=== PATIENT | male | born 1970 | race Caucasian/White ===

== ENCOUNTER 2019-11-24 08:57 | Inpatient (IN) | payer MEDICAID ==
[~2019-11-24] VITALS: Ht 177.8 cm; Wt 124.6 kg
--- NOTE | 2019-11-24 09:40 | NUR ---
pt presents to ED with c/o abcess to back, present x 10 days. pt was seen at urgent care 5 days ago and given two antibiotics; bactrim and clindamycin, pt has been compliant with meds but has not noted any improvement in abcess size. pt states he has been febrile at home, last temp recorded was 99 at home yesterday pm. tmax at home 100.7 3 days ago. pt took motrin this am, denies pain at this time. pt seen and examined by DOUG Craig aware pt is hypertensive at 218/133 in triage. pt states he has never been diagnosed with htn, but hasn't seen a doctor in years. pt denies CP/SOB/visual changes/headaches. pt a&o, resps even and unlabored. all monitors in place, pt is sinus tach rate 100-110 with no ectopy. call light in reach. awaitng orders.
[2019-11-24] MEDS ORDERED: SODIUM CHLORIDE FLUSH 10ML SYR IVF ONE (10:00)
[2019-11-24] MEDS ORDERED: IBUP-1223 PO (10:12)
[2019-11-24 10:40] LABS: MEAN CORPUSCULAR HEMOGLOBIN 32.2 pg (27.5-34.5); MEAN CORPUSCULAR HGB CONC 33.5 g/dL (33.2-36.2); MEAN CORPUSCULAR VOLUME 96.2 fL (81-97); MEAN PLATELET VOLUME 7.3 fL (7.4-10.4); PLATELET COUNT 383 x10^3/uL (130-400); RED BLOOD COUNT 4.85 x10^6/uL (4.38-5.82); RED CELL DISTRIBUTION WIDTH 12.2 % (9.4-14.8)
[2019-11-24 10:43] LABS: ALBUMIN 2.5 g/dL (3.4-5.0); ANION GAP 11 mmol/L (5-15); CHLORIDE 98 mmol/L (98-107); CREATININE 0.85 mg/dL (0.7-1.3)
[2019-11-24] MEDS ORDERED: SODIUM CHLORIDE 0.9% 1,000ML IVBOLUS ONE (11:00)
--- NOTE | 2019-11-24 11:04 | NUR ---
PIV to left chest does not have blood return but flushes, second PIV placed to left AC with US guidance, this PIV flushes with blood return. 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 Labs reviewed by TALITA Yancey, pt meeting criteria for sepsis, order for abx requested. MD aware of BP and trend.
[2019-11-24 11:08] LABS: BASOPHILS # (AUTO) 0.03 x10^3/uL (0-0.1); BASOPHILS % (AUTO) 0 % (0-1); EOSINOPHILS # (AUTO) 0.06 x10^3/uL (0-0.4); EOSINOPHILS % (AUTO) 0 % (1-7); LYMPHOCYTES # (AUTO) 1.36 x10^3/uL (1-3.4); LYMPHOCYTES % (AUTO) 8 % (22-44); MD SCAN; MONOCYTES # (AUTO) 1.44 x10^3/uL (0.2-0.8); MONOCYTES % (AUTO) 9 % (2-9); NEUTROPHILS # (AUTO) 14.05 x10^3/uL (1.8-6.8); NEUTROPHILS % (AUTO) 83 % (42-75)
[2019-11-24] MEDS ORDERED: OMNIPAQUE 350 MG/ML, 100ML BOTTLE ONE (11:15)
[2019-11-24] MEDS ORDERED: CEFTRIAXONE PMX 1GM/50ML 50 ML ONE (11:17)
[2019-11-24] MEDS ORDERED: VANCOMYCIN PER PHARMACY MC PRN ×2 (11:30→12:30)
[2019-11-24] MEDS ORDERED: CEFTRIAXONE PMX 1GM/50ML 50 ML IV ONE (11:30)
[2019-11-24] MEDS ORDERED: VANCOMYCIN 2,000 MG in SODIUM CHLORIDE 0.9% 500 ML IV ONE (12:00)
--- NOTE | 2019-11-24 12:00 | NUR ---
late entry d/t patient care: pt resting on gurney, pt a&o, resps even and unlabored. sinus tach rate 90s on monitor with no ectopy. pt reports minimal pain to abcess. IV abx infusing, IVF infusing. pt denies any needs at this time.
[2019-11-24] MEDS ORDERED: POTASSIUM CHLORIDE 20 MEQ TAB.ER.PRT PO ONE (12:30)
[2019-11-24] MEDS ORDERED: TRAZODONE 50MG TABLET PO PRN (12:30)
[2019-11-24] MEDS: INSULIN LISPRO 100 UNITS/ML, PEN SQ-INSULIN SCH ×3 (12:30→20:47)
[2019-11-24] MEDS ORDERED: ACETAMINOPHEN 325 MG TABLET PO PRN (12:30)
[2019-11-24] MEDS: CEFTRIAXONE PMX 1GM/50ML 50 ML IV SCH (12:30)
[2019-11-24] MEDS ORDERED: ONDANSETRON ODT 4 MG PO PRN (12:30)
[2019-11-24] MEDS ORDERED: METOCLOPRAMIDE 5 MG/ML, 2ML IVPush PRN (12:30)
[2019-11-24 12:43] LABS: FREE T4 (FREE THYROXINE) 1.47 ng/dL (0.76-1.46)
--- NOTE | 2019-11-24 13:07 | NUR ---
This RN spoke with MD Benjamin MD instructed RN to hold oral potassium until after pt has had surgery. RN to keep pt NPO at this time for possible surgery today.
--- NOTE | 2019-11-24 13:53 | NUR ---
fingerstick glucose 260, RN to hold insulin prior to surgery per MD Alexander as pt is NPO.
--- NOTE | 2019-11-24 13:57 | NUR ---
MD Alexander notified pt has not had an EKG, and has been hypertensive since arrival to ED. Pt denies cardiac symptoms, however will likely go to OR today per MD Yancey. MD Alexander ordered a preprocedure EKG. EKG completed by EDT and reviewed by MD Yancey.
[2019-11-24] MEDS ORDERED: MORPHINE SULFATE 4 MG/ML, 1ML ONE (14:04)
[2019-11-24] MEDS: morphine SULFATE 10 MG/ML, 1ML IVPush PRN (14:10)
--- NOTE | 2019-11-24 14:16 | NUR ---
Task rn: Medicated per Emar for upper back pain at 02/24 Updated on estimated poc
--- NOTE | 2019-11-24 14:29 | NUR ---
report called to RN Kathy, pt medicated by task RN for pain to [facility] site, pt tolerating well. all monitors in place, pt a&o, resps even and unlabored, satting >90% room air. pt voided in ED without collecting sample, receiving RN aware of need to collect UA. pt awaiting transport to medical floor at this time.
--- NOTE | 2019-11-24 15:19 | NUR ---
preop IRVING Rodrigues called for report, sbar report given over phone.
[2019-11-24] MEDS: SODIUM CHLORIDE 0.9% 1,000 ML IV SCH (15:25)
[2019-11-24] MEDS ORDERED: PHARMACOKINETIC MONITORING MC PRN (15:30)
[2019-11-24] MEDS ORDERED: CHLORHEXIDINE 15 ML UDC MM ONE (15:52)
[2019-11-24] MEDS ORDERED: CHLORHEXIDINE 15 ML UDC ONE (15:54)
[2019-11-24] MEDS ORDERED: HALOPERIDOL 5 MG/ML IV PRN (16:00)
[2019-11-24] MEDS ORDERED: MEPERIDINE/PF 25MG/ML,1ML IVPush PRN (16:00)
[2019-11-24] MEDS ORDERED: OXYcodone 5 MG/5 ML ORAL.SOL UDC PO PRN (16:00)
[2019-11-24] MEDS ORDERED: HYDROmorphone 2 MG/ML, 1ML IVPush PRN (16:00)
[2019-11-24] MEDS ORDERED: PROMETHAZINE 25 MG/ML, 1ML IV PRN (16:00)
[2019-11-24] MEDS ORDERED: MIDAZOLAM 1 MG/ML, 2ML ONE (16:09)
[2019-11-24] MEDS ORDERED: FENTANYL PF 250 MCG/5ML ONE (16:10)
[2019-11-24] MEDS ORDERED: NEOSTIGMINE 1 MG/ML, 10ML ONE (16:52)
[2019-11-24] MEDS ORDERED: PROPOFOL 10 MG/ML, 20ML ONE (16:52)
[2019-11-24] MEDS ORDERED: ONDANSETRON 2MG/ML, 2ML ONE (16:52)
[2019-11-24] MEDS ORDERED: GLYCOPYRROLATE 0.2MG/1ML, 5ML ONE (16:52)
[2019-11-24] MEDS ORDERED: ROCURONIUM 10MG/ML,5ML ONE (16:52)
[2019-11-24] MEDS ORDERED: CEFAZOLIN 1,000 MG ONE (16:52)
[2019-11-24] MEDS ORDERED: DEXAMETHASONE 4 MG/ML, 1ML ONE (16:52)
[2019-11-24] MEDS ORDERED: SUCCINYLCHOLINE 20 MG/ML, 10ML ONE (16:52)
[2019-11-24] MEDS: LABETALOL 5MG/ML, 20ML IV PRN ×3 (17:26→17:54)
[2019-11-24] MEDS ORDERED: FENTANYL PF 100 MCG/2ML ONE (17:31)
[2019-11-24] MEDS ORDERED: OXYcodone 5 MG/5 ML ORAL.SOL UDC ONE (17:31)
[2019-11-24] MEDS ORDERED: hydrALAzine 20 MG/ML, 1ML ONE (17:44)
[2019-11-24] MEDS: hydrALAzine 20 MG/ML, 1ML IV PRN ×2 (17:45→18:05)
[2019-11-24] MEDS: FENTANYL PF 100 MCG/2ML IV PRN ×2 (17:54→17:59)
[2019-11-24 18:41] VITALS: BP 179/94
[2019-11-24 19:38] LABS: MICROSCOPIC AUTO
[2019-11-24 19:46] LABS: CULTURE INDICATED? NO
[2019-11-24] MEDS: HYDROcodone/APAP 5/325 TABLET PO PRN (23:05)
[2019-11-25] MEDS: VANCOMYCIN 2,000 MG in SODIUM CHLORIDE 0.9% 500 ML IV SCH ×3 (00:04→23:49)
[2019-11-25 01:17] VITALS: BP 136/86
[2019-11-25] MEDS: SODIUM CHLORIDE 0.9% 1,000 ML IV SCH ×3 (04:29→18:04)
[2019-11-25 05:52] LABS: MEAN CORPUSCULAR HEMOGLOBIN 32.6 pg (27.5-34.5); MEAN CORPUSCULAR HGB CONC 33.8 g/dL (33.2-36.2); MEAN CORPUSCULAR VOLUME 96.4 fL (81-97); MEAN PLATELET VOLUME 7.2 fL (7.4-10.4); PLATELET COUNT 385 x10^3/uL (130-400); RED BLOOD COUNT 3.97 x10^6/uL (4.38-5.82); RED CELL DISTRIBUTION WIDTH 12.4 % (9.4-14.8)
[2019-11-25 05:55] LABS: ANION GAP 10 mmol/L (5-15); CALCIUM 8.4 mg/dL (8.5-10.1); CHLORIDE 101 mmol/L (98-107)
[2019-11-25 05:59] LABS: CHOL/HDL RATIO 3.8; CHOLESTEROL, TOTAL 111 mg/dL (140-239); CREATININE 0.68 mg/dL (0.7-1.3); HDL CHOL % 26 % (26-37); HDL CHOLESTEROL (DIRECT) 29 mg/dL (40-60); LDL CHOLESTEROL,CALCULATED 61 mg/dL (54-169); LDL/HDL RATIO 2.1 (0.5-3.0); TRIGLYCERIDES 105 mg/dL (50-200); VLDL CHOLESTEROL 21 mg/dL (0-25)
[2019-11-25 06:16] LABS: MD YES
[2019-11-25 06:25] LABS: BAND#(MANUAL) 1.28 x10^3/uL; BANDS%(MANUAL) 8 % (0-7); LYMPHS% (MANUAL) 25 % (22-44); METAMYELOCYTES# (MANUAL) 0.16 x10^3/uL (0-0); METAMYELOCYTES% (MANUAL) 1 % (0-1); MONOS% (MANUAL) 5 % (2-9); SEG#(MANUAL) 9.76 x10^3/uL (1.8-6.8); SEGS% (MANUAL) 61 % (42-75)
[2019-11-25 06:27] LABS: <RBC MORPHOLOGY> NORMAL; TOXIC GRAN 1+
[2019-11-25 06:42] LABS: <PLATELET ESTIMATE> ADEQUATE; <PLT MORPHOLOGY> NORMAL PLT MORPH
[2019-11-25 07:43] VITALS: BP 181/102
[2019-11-25] MEDS: hydrALAzine 20 MG/ML, 1ML IVPush PRN (07:55)
[2019-11-25] MEDS: INSULIN LISPRO 100 UNITS/ML, PEN SQ-INSULIN SCH ×4 (08:07→22:03)
[2019-11-25 08:09] VITALS: BP 166/94
[2019-11-25] MEDS: HYDROcodone/APAP 5/325 TABLET PO PRN ×2 (09:11→16:45)
[2019-11-25] MEDS: morphine SULFATE 10 MG/ML, 1ML IVPush PRN (12:57)
[2019-11-25 14:17] VITALS: BP 157/97
[2019-11-25] MEDS: CEFTRIAXONE PMX 1GM/50ML 50 ML IV SCH (14:22)
[2019-11-25] MEDS: LISINOPRIL 10 MG TABLET PO SCH (16:40)
[2019-11-25 18:39] VITALS: BP 127/79
[2019-11-25] MEDS ORDERED: INSULIN GLARGINE 100 UNITS/ML, PEN SQ-INSULIN SCH (21:00)
[2019-11-26] VITALS (7 sets, daily range): BP systolic 124–184; BP diastolic 84–128
[2019-11-26] MEDS: HYDROcodone/APAP 5/325 TABLET PO PRN ×4 (00:41→19:32)
[2019-11-26] MEDS: SODIUM CHLORIDE 0.9% 1,000 ML IV SCH (05:07)
[2019-11-26 05:22] LABS: MEAN CORPUSCULAR HEMOGLOBIN 32.8 pg (27.5-34.5); MEAN CORPUSCULAR HGB CONC 34.1 g/dL (33.2-36.2); MEAN PLATELET VOLUME 7.2 fL (7.4-10.4); PLATELET COUNT 392 x10^3/uL (130-400); RED BLOOD COUNT 3.71 x10^6/uL (4.38-5.82); RED CELL DISTRIBUTION WIDTH 12.2 % (9.4-14.8)
[2019-11-26 05:29] LABS: ANION GAP 9 mmol/L (5-15); CALCIUM 8.2 mg/dL (8.5-10.1); CHLORIDE 102 mmol/L (98-107); CREATININE 0.52 mg/dL (0.7-1.3)
[2019-11-26 06:06] LABS: MD YES
[2019-11-26 06:08] LABS: BAND#(MANUAL) 0.11 x10^3/uL; BANDS%(MANUAL) 1 % (0-7); EOS#(MANUAL) 0.22 x10^3/uL (0.0-0.4); EOS% (MANUAL) 2 % (1-7); LYMPH#(MANUAL) 2.05 x10^3/uL (1-3.4); LYMPHS% (MANUAL) 19 % (22-44); METAMYELOCYTES# (MANUAL) 0.11 x10^3/uL (0-0); METAMYELOCYTES% (MANUAL) 1 % (0-1); MONOS#(MANUAL) 0.97 x10^3/uL (0.3-2.7); MONOS% (MANUAL) 9 % (2-9); MYELOCYTES# (MANUAL) 0.22 x10^3/uL (0-0); MYELOCYTES% (MANUAL) 2 % (0-0); SEG#(MANUAL) 7.13 x10^3/uL (1.8-6.8); SEGS% (MANUAL) 66 % (42-75)
[2019-11-26 06:09] LABS: <PLATELET ESTIMATE> ADEQUATE; <PLT MORPHOLOGY> NORMAL PLT MORPH; <RBC MORPHOLOGY> NORMAL; TOXIC GRAN 1+
[2019-11-26] MEDS: INSULIN LISPRO 100 UNITS/ML, PEN SQ-INSULIN SCH ×4 (08:00→20:55)
[2019-11-26] MEDS: LISINOPRIL 10 MG TABLET PO SCH (08:00)
[2019-11-26] MEDS: DOCUSATE 100 MG CAPSULE PO PRN (09:15)
[2019-11-26] MEDS: POLYETHYLENE GLYCOL 17 GM PACKET PO PRN (09:16)
[2019-11-26] MEDS: hydrALAzine 20 MG/ML, 1ML IVPush PRN (09:16)
[2019-11-26] MEDS: morphine SULFATE 10 MG/ML, 1ML IVPush PRN (12:32)
[2019-11-26] MEDS: CEFTRIAXONE PMX 1GM/50ML 50 ML IV SCH (14:08)
[2019-11-26] MEDS: VANCOMYCIN 2,000 MG in SODIUM CHLORIDE 0.9% 500 ML IV SCH (15:19)
[2019-11-26] MEDS: CARVEDILOL 6.25 MG TABLET PO SCH (16:49)
[2019-11-26] MEDS ORDERED: INSULIN GLARGINE 100 UNITS/ML, PEN SQ-INSULIN SCH ×2 (21:00)
[2019-11-27 00:24] VITALS: BP 134/88
[2019-11-27] MEDS: VANCOMYCIN 2,000 MG in SODIUM CHLORIDE 0.9% 500 ML IV SCH ×2 (03:04→16:33)
[2019-11-27] MEDS: HYDROcodone/APAP 5/325 TABLET PO PRN ×4 (04:09→22:50)
[2019-11-27 04:26] LABS: BASOPHILS # (AUTO) 0.06 x10^3/uL (0-0.1); BASOPHILS % (AUTO) 1 % (0-1); EOSINOPHILS # (AUTO) 0.17 x10^3/uL (0-0.4); EOSINOPHILS % (AUTO) 2 % (1-7); LYMPHOCYTES % (AUTO) 18 % (22-44); MD NO; MEAN CORPUSCULAR HEMOGLOBIN 32.6 pg (27.5-34.5); MEAN CORPUSCULAR HGB CONC 34.2 g/dL (33.2-36.2); MEAN CORPUSCULAR VOLUME 95.1 fL (81-97); MEAN PLATELET VOLUME 7.2 fL (7.4-10.4); MONOCYTES # (AUTO) 0.64 x10^3/uL (0.2-0.8); MONOCYTES % (AUTO) 7 % (2-9); NEUTROPHILS # (AUTO) 6.21 x10^3/uL (1.8-6.8); NEUTROPHILS % (AUTO) 72 % (42-75); PLATELET COUNT 485 x10^3/uL (130-400); RED BLOOD COUNT 3.84 x10^6/uL (4.38-5.82); RED CELL DISTRIBUTION WIDTH 12.4 % (9.4-14.8)
[2019-11-27 04:32] LABS: ANION GAP 7 mmol/L (5-15); CALCIUM 8.3 mg/dL (8.5-10.1); CHLORIDE 107 mmol/L (98-107); CREATININE 0.58 mg/dL (0.7-1.3)
[2019-11-27] MEDS: CARVEDILOL 6.25 MG TABLET PO SCH ×2 (05:29→16:34)
[2019-11-27 06:13] VITALS: BP 158/100
[2019-11-27] MEDS: INSULIN LISPRO 100 UNITS/ML, PEN SQ-INSULIN SCH ×4 (07:00→20:53)
[2019-11-27 07:24] VITALS: BP 148/95
[2019-11-27] MEDS ORDERED: POTASSIUM CHLORIDE 20 MEQ TAB.ER.PRT PO ONE (07:30)
[2019-11-27] MEDS: POLYETHYLENE GLYCOL 17 GM PACKET PO PRN (08:13)
[2019-11-27] MEDS: LISINOPRIL 10 MG TABLET PO SCH (08:14)
[2019-11-27] MEDS: DOCUSATE 100 MG CAPSULE PO PRN (08:14)
[2019-11-27] MEDS: ENOXAPARIN 40 MG/0.4 ML SQ SCH (09:00)
[2019-11-27] MEDS: LISINOPRIL 20 MG TABLET PO SCH (10:19)
[2019-11-27] MEDS: morphine SULFATE 10 MG/ML, 1ML IVPush PRN (12:14)
[2019-11-27 14:07] VITALS: BP 122/83
[2019-11-27] MEDS: CEFTRIAXONE PMX 1GM/50ML 50 ML IV SCH (15:34)
[2019-11-27 19:52] VITALS: BP 153/97
[2019-11-27] MEDS ORDERED: INSULIN GLARGINE 100 UNITS/ML, PEN SQ-INSULIN SCH (21:00)
[2019-11-28 01:38] VITALS: BP 136/84
[2019-11-28] MEDS: VANCOMYCIN 2,000 MG in SODIUM CHLORIDE 0.9% 500 ML IV SCH ×2 (04:34→16:41)
[2019-11-28] MEDS: HYDROcodone/APAP 5/325 TABLET PO PRN ×3 (04:43→15:54)
[2019-11-28 05:21] LABS: BASOPHILS # (AUTO) 0.04 x10^3/uL (0-0.1); BASOPHILS % (AUTO) 1 % (0-1); EOSINOPHILS # (AUTO) 0.13 x10^3/uL (0-0.4); EOSINOPHILS % (AUTO) 2 % (1-7); LYMPHOCYTES % (AUTO) 20 % (22-44); MD NO; MEAN CORPUSCULAR HEMOGLOBIN 32.5 pg (27.5-34.5); MEAN CORPUSCULAR HGB CONC 33.8 g/dL (33.2-36.2); MEAN CORPUSCULAR VOLUME 96.3 fL (81-97); MEAN PLATELET VOLUME 6.7 fL (7.4-10.4); MONOCYTES # (AUTO) 0.65 x10^3/uL (0.2-0.8); MONOCYTES % (AUTO) 8 % (2-9); NEUTROPHILS # (AUTO) 5.44 x10^3/uL (1.8-6.8); NEUTROPHILS % (AUTO) 69 % (42-75); PLATELET COUNT 477 x10^3/uL (130-400); RED CELL DISTRIBUTION WIDTH 12.4 % (9.4-14.8)
[2019-11-28 05:25] LABS: ANION GAP 6 mmol/L (5-15); CALCIUM 8.3 mg/dL (8.5-10.1); CHLORIDE 107 mmol/L (98-107); CREATININE 0.57 mg/dL (0.7-1.3)
[2019-11-28] MEDS: CARVEDILOL 6.25 MG TABLET PO SCH (05:46)
[2019-11-28 06:44] VITALS: BP 152/98
[2019-11-28] MEDS: LISINOPRIL 20 MG TABLET PO SCH (07:36)
[2019-11-28] MEDS: ENOXAPARIN 40 MG/0.4 ML SQ SCH (07:37)
[2019-11-28 07:38] VITALS: BP 159/97
[2019-11-28] MEDS: INSULIN LISPRO 100 UNITS/ML, PEN SQ-INSULIN SCH ×4 (08:14→21:16)
[2019-11-28] MEDS: morphine SULFATE 10 MG/ML, 1ML IVPush PRN (10:25)
[2019-11-28 13:33] VITALS: BP 134/88
[2019-11-28] MEDS: CEFTRIAXONE PMX 1GM/50ML 50 ML IV SCH (15:56)
[2019-11-28] MEDS: CARVEDILOL 12.5 MG TABLET PO SCH (17:25)
[2019-11-28 19:05] VITALS: BP 127/88
[2019-11-28] MEDS ORDERED: INSULIN GLARGINE 100 UNITS/ML, PEN SQ-INSULIN SCH (21:00)
[2019-11-29 00:57] VITALS: BP 167/122
[2019-11-29] MEDS: hydrALAzine 20 MG/ML, 1ML IVPush PRN (01:07)
[2019-11-29 01:50] VITALS: BP 149/100
[2019-11-29 03:09] VITALS: BP 159/93
[2019-11-29] MEDS: VANCOMYCIN 2,000 MG in SODIUM CHLORIDE 0.9% 500 ML IV SCH ×2 (04:42→19:57)
[2019-11-29] MEDS: CARVEDILOL 12.5 MG TABLET PO SCH ×2 (05:34→19:58)
[2019-11-29 07:06] VITALS: BP_SYST 157; BP_DIAS 101; BP_DIAS 103
[2019-11-29] MEDS: LISINOPRIL 20 MG TABLET PO SCH (08:35)
[2019-11-29] MEDS: ENOXAPARIN 40 MG/0.4 ML SQ SCH (08:37)
[2019-11-29] MEDS: INSULIN LISPRO 100 UNITS/ML, PEN SQ-INSULIN SCH ×4 (09:19→21:10)
[2019-11-29 12:59] VITALS: BP 161/100
[2019-11-29] MEDS: morphine SULFATE 10 MG/ML, 1ML IVPush PRN (14:03)
[2019-11-29] MEDS: CEFTRIAXONE PMX 1GM/50ML 50 ML IV SCH (15:24)
[2019-11-29] MEDS: METRONIDAZOLE PMX 500MG/100ML 100 ML IV SCH (17:10)
[2019-11-29 20:22] VITALS: BP 137/70
[2019-11-29] MEDS: HYDROcodone/APAP 5/325 TABLET PO PRN (21:09)
[2019-11-29] MEDS: INSULIN GLARGINE 100 UNITS/ML, PEN SQ-INSULIN SCH (21:10)
[2019-11-30] VITALS (7 sets, daily range): BP systolic 128–183; BP diastolic 83–119
[2019-11-30] MEDS: METRONIDAZOLE PMX 500MG/100ML 100 ML IV SCH ×3 (01:19→20:48)
[2019-11-30 05:49] LABS: BASOPHILS # (AUTO) 0.03 x10^3/uL (0-0.1); BASOPHILS % (AUTO) 0 % (0-1); EOSINOPHILS # (AUTO) 0.19 x10^3/uL (0-0.4); EOSINOPHILS % (AUTO) 3 % (1-7); LYMPHOCYTES # (AUTO) 1.31 x10^3/uL (1-3.4); LYMPHOCYTES % (AUTO) 21 % (22-44); MD NO; MEAN CORPUSCULAR HEMOGLOBIN 32.5 pg (27.5-34.5); MEAN CORPUSCULAR HGB CONC 33.8 g/dL (33.2-36.2); MEAN CORPUSCULAR VOLUME 96.2 fL (81-97); MEAN PLATELET VOLUME 7.1 fL (7.4-10.4); MONOCYTES # (AUTO) 0.66 x10^3/uL (0.2-0.8); MONOCYTES % (AUTO) 11 % (2-9); NEUTROPHILS % (AUTO) 65 % (42-75); PLATELET COUNT 426 x10^3/uL (130-400); RED BLOOD COUNT 3.52 x10^6/uL (4.38-5.82); RED CELL DISTRIBUTION WIDTH 12.3 % (9.4-14.8)
[2019-11-30 05:51] LABS: ANION GAP 6 mmol/L (5-15); CALCIUM 8.2 mg/dL (8.5-10.1); CHLORIDE 108 mmol/L (98-107); CREATININE 0.52 mg/dL (0.7-1.3)
[2019-11-30] MEDS: CARVEDILOL 12.5 MG TABLET PO SCH ×2 (06:08→17:59)
[2019-11-30] MEDS: INSULIN LISPRO 100 UNITS/ML, PEN SQ-INSULIN SCH ×4 (07:00→21:50)
[2019-11-30] MEDS: VANCOMYCIN 2,000 MG in SODIUM CHLORIDE 0.9% 500 ML IV SCH ×2 (08:10→10:21)
[2019-11-30] MEDS: LISINOPRIL 20 MG TABLET PO SCH (08:11)
[2019-11-30] MEDS: ENOXAPARIN 40 MG/0.4 ML SQ SCH (08:12)
[2019-11-30] MEDS: LABETALOL 5MG/ML, 20ML IVPush PRN ×2 (08:20→12:34)
[2019-11-30] MEDS: HYDROcodone/APAP 5/325 TABLET PO PRN (13:38)
[2019-11-30] MEDS: CEFTRIAXONE PMX 1GM/50ML 50 ML IV SCH (16:56)
[2019-11-30] MEDS: hydrALAzine 20 MG/ML, 1ML IVPush PRN (18:37)
[2019-11-30] MEDS: INSULIN GLARGINE 100 UNITS/ML, PEN SQ-INSULIN SCH (21:49)
[2019-12-01] MEDS: VANCOMYCIN 2,000 MG in SODIUM CHLORIDE 0.9% 500 ML IV SCH ×2 (00:01→00:28)
[2019-12-01] MEDS ORDERED: metroNIDAZOLE 500 MG TABLET PO ONE (00:30)
[2019-12-01 00:35] VITALS: BP 159/104
[2019-12-01] MEDS: METRONIDAZOLE PMX 500MG/100ML 100 ML IV SCH (04:06)
[2019-12-01] MEDS: CARVEDILOL 12.5 MG TABLET PO SCH ×2 (05:57→17:31)
[2019-12-01] MEDS: HYDROcodone/APAP 5/325 TABLET PO PRN (06:02)
[2019-12-01 06:35] VITALS: BP 176/120
[2019-12-01] MEDS ORDERED: LISINOPRIL 40 MG TABLET ONE (06:38)
[2019-12-01] MEDS: LISINOPRIL 40 MG TABLET PO SCH (06:39)
[2019-12-01] MEDS: INSULIN LISPRO 100 UNITS/ML, PEN SQ-INSULIN SCH ×4 (07:00→21:53)
[2019-12-01 07:19] VITALS: BP 152/100
[2019-12-01] MEDS: ENOXAPARIN 40 MG/0.4 ML SQ SCH (09:00)
[2019-12-01 10:21] LABS: HCT (SEDRATE) 36.4 % (39.2-51.8)
[2019-12-01 10:27] LABS: CREATININE 0.65 mg/dL (0.7-1.3)
[2019-12-01 10:35] LABS: C-REACTIVE PROTEIN, QUANT 0.99 mg/dL (0.02-0.49)
[2019-12-01] MEDS ORDERED: VISIPAQUE 270 MG/ML, 50ML BOTTLE ONE (11:10)
[2019-12-01] MEDS: ERTAPENEM 1 GM in SODIUM CHLORIDE 0.9% 50 ML IV SCH (12:29)
[2019-12-01 13:46] VITALS: BP 154/89
[2019-12-01 17:17] VITALS: BP 182/107
[2019-12-01] MEDS: hydrALAzine 20 MG/ML, 1ML IVPush PRN (17:37)
[2019-12-01 18:32] VITALS: BP 170/104
[2019-12-01] MEDS: INSULIN GLARGINE 100 UNITS/ML, PEN SQ-INSULIN SCH (21:53)
[2019-12-02 00:14] VITALS: BP 150/99
[2019-12-02] MEDS: CARVEDILOL 12.5 MG TABLET PO SCH (05:00)
[2019-12-02 05:36] LABS: CREATININE 0.69 mg/dL (0.7-1.3)
[2019-12-02] MEDS: INSULIN LISPRO 100 UNITS/ML, PEN SQ-INSULIN SCH ×3 (07:00→11:33)
[2019-12-02] MEDS: ENOXAPARIN 40 MG/0.4 ML SQ SCH (09:00)
[2019-12-02] MEDS: LISINOPRIL 40 MG TABLET PO SCH (09:08)
[2019-12-02 09:27] VITALS: BP 157/98
[2019-12-02] MEDS ORDERED: CARV12.52 PO (10:40)
[2019-12-02] MEDS ORDERED: INSU100I13 SQ-INSULIN (10:40)
[2019-12-02] MEDS ORDERED: LISI40TA PO (10:40)
[2019-12-02] MEDS: ERTAPENEM 1 GM in SODIUM CHLORIDE 0.9% 50 ML IV SCH (11:57)
== END 2019-12-02 14:21 | disposition home or self-care (01) | DRG 710 ==
LOC: ED 10:32 → EDIP 11:53 → 3N 15:10
PROVIDERS: ADMIT Internal Medicine; ATTEND Family Medicine
PROC: 0J970ZZ Drainage of Back Subcutaneous Tissue and Fascia, Open Approach (ICD-10-PCS; principal; 2019-11-24 16:00)
PROC: 02HV33Z Insertion of Infusion Device into Superior Vena Cava, Percutaneous Approach (ICD-10-PCS; 2019-12-01)
PROC: B548ZZA Ultrasonography of Superior Vena Cava, Guidance (ICD-10-PCS; 2019-12-01)
PROC: B5181ZA Fluoroscopy of Superior Vena Cava using Low Osmolar Contrast, Guidance (ICD-10-PCS; 2019-12-01)
DX: A41.9 Sepsis, unspecified organism (principal); E11.65 Type 2 diabetes mellitus with hyperglycemia; E66.9 Obesity, unspecified; Z68.39 Body mass index [BMI] 39.0-39.9, adult; E87.1 Hypo-osmolality and hyponatremia; I10 Essential (primary) hypertension; E87.6 Hypokalemia; L02.212 Cutaneous abscess of back [any part, except buttock and flank]; M54.9 Dorsalgia, unspecified; L03.312 Cellulitis of back [any part except buttock and flank]; Z82.3 Family history of stroke; Z83.3 Family history of diabetes mellitus
CPT/HCPCS: 36415; 36573; 71260; 80048; 80061; 80202; 81001; 82040; 82565; 82962; 83036; 83605; 83735; 84100; 84439; 84443; 85025; 85651; 86140; 87040; 87070; 87075; 87076; 87205; 93005; G0378; J0690; J0696; J1100; J1335; J2250; J2405; J2704; J2710; J3010; J3370; Q9966; Q9967; C1751; J0330; J0360; J1815; J2270; J7030; J7040

== ENCOUNTER → 2019-12-16 | Outpatient (CLI) | payer MEDICAID ==
[~2019-12-16] MED LIST: CARV12.52 PO; ERTAPENEM 1 GM ONE; IBUP-1223 PO; INSU100I13 SQ-INSULIN; LISI40TA PO; OMNIPAQUE 350 MG/ML, 75ML BOTTLE ONE
== END | disposition home or self-care (01) ==
LOC: CFH 09:57
PROVIDERS: ATTEND Internal Medicine Infectious Disease
DX: J18.9 Pneumonia, unspecified organism (principal); M47.814 Spondylosis without myelopathy or radiculopathy, thoracic region; R23.4 Changes in skin texture; M79.89 Other specified soft tissue disorders; L72.3 Sebaceous cyst; Q26.9 Congenital malformation of great vein, unspecified
CPT/HCPCS: 71260; Q9967

== ENCOUNTER → 2020-02-04 | Outpatient (CLI) | payer MEDICAID ==
[~2020-02-04] MED LIST changes: -ERTAPENEM 1 GM ONE; -OMNIPAQUE 350 MG/ML, 75ML BOTTLE ONE
== END | disposition home or self-care (01) ==
LOC: CFH 13:32
PROVIDERS: ATTEND Internal Medicine Cardiovascular Disease
DX: I10 Essential (primary) hypertension (principal); E11.9 Type 2 diabetes mellitus without complications
CPT/HCPCS: 93306

== ENCOUNTER 2020-09-09 09:10 | Inpatient (IN) | payer MEDICAID ==
[~2020-09-09] VITALS: Ht 179.1 cm; Wt 100.6 kg
[2020-09-09] MEDS ORDERED: CARV25TA12 PO (09:50)
[2020-09-09] MEDS ORDERED: ATOR20TA37 PO (09:53)
[2020-09-09] MEDS ORDERED: METF500T17 PO (09:53)
[2020-09-09] MEDS ORDERED: HYDR25TA6 PO (09:53)
[2020-09-09] MEDS ORDERED: AMLO-211 PO (09:53)
[2020-09-09] MEDS ORDERED: SODIUM CHLORIDE FLUSH 10ML SYR IVF ONE (10:00)
[2020-09-09] MEDS ORDERED: CEFTRIAXONE PMX 1GM/50ML 50 ML IVPB ONE (10:00)
[2020-09-09] MEDS ORDERED: VANCOMYCIN PER PHARMACY MC ONE (10:00)
[2020-09-09 10:24] LABS: BASOPHILS % (AUTO) 0 % (0-1); EOSINOPHILS % (AUTO) 0 % (1-7); LYMPHOCYTES % (AUTO) 13 % (22-44); MEAN CORPUSCULAR HEMOGLOBIN 32.3 pg (27.5-34.5); MEAN CORPUSCULAR HGB CONC 34.3 g/dL (33.2-36.2); MEAN PLATELET VOLUME 7.4 fL (7.4-10.4); MONOCYTES % (AUTO) 9 % (2-9); NEUTROPHILS % (AUTO) 77 % (42-75); PLATELET COUNT 319 x10^3/uL (130-400); RED BLOOD COUNT 4.26 x10^6/uL (4.38-5.82); RED CELL DISTRIBUTION WIDTH 12.4 % (9.4-14.8)
[2020-09-09 10:27] LABS: MD NO
[2020-09-09] MEDS ORDERED: CEFTRIAXONE PMX 1GM/50ML 50 ML ONE (10:28)
[2020-09-09] MEDS ORDERED: VANCOMYCIN 2,500 MG in SODIUM CHLORIDE 0.9% 500 ML IV ONE (10:30)
[2020-09-09 10:31] LABS: HCT (SEDRATE) 34.8 % (39.2-51.8)
[2020-09-09 10:36] LABS: ALBUMIN 3.4 g/dL (3.4-5.0); ANION GAP 6 mmol/L (5-15); CALCIUM 9.3 mg/dL (8.5-10.1); CHLORIDE 101 mmol/L (98-107); CREATININE 1.29 mg/dL (0.7-1.3)
[2020-09-09] MEDS ORDERED: SODIUM CHLORIDE FLUSH 10ML SYR IVF PRN (12:00)
[2020-09-09] MEDS ORDERED: ONDANSETRON 2MG/ML, 2ML IVPush PRN (13:00)
[2020-09-09] MEDS ORDERED: DEXTROSE 4 GM TAB.CHEW PO PRN (13:00)
[2020-09-09] MEDS ORDERED: MELATONIN 5 MG TABLET PO PRN (13:00)
[2020-09-09] MEDS ORDERED: OXYcodone IR 5MG TABLET PO PRN (13:00)
[2020-09-09] MEDS ORDERED: hydrALAzine 20 MG/ML, 1ML IVPush PRN (13:00)
[2020-09-09] MEDS ORDERED: DOCUSATE 100 MG CAPSULE PO PRN (13:00)
[2020-09-09] MEDS ORDERED: GLUCAGON 1 MG IM PRN (13:00)
[2020-09-09] MEDS ORDERED: DEXTROSE 50%, 50ML SYRINGE IVPush PRN (13:00)
[2020-09-09] MEDS ORDERED: VANCOMYCIN PER PHARMACY MC PRN (13:00)
[2020-09-09] MEDS ORDERED: ACETAMINOPHEN 325 MG TABLET PO PRN (13:00)
[2020-09-09 13:20] LABS: INTERNATIONAL NORMALIZED RATIO 1.09 (0.93-1.1); PROTHROMBIN TIME 11.5 Seconds (9.6-11.5)
[2020-09-09 13:24] LABS: BILIRUBIN, DIRECT 0.4 mg/dL (0.1-0.2)
[2020-09-09] MEDS: ENOXAPARIN 40 MG/0.4 ML SQ SCH (13:30)
[2020-09-09 13:34] LABS: BILIRUBIN,INDIRECT 0.6 mg/dL (0.0-2.0); FREE T4 (FREE THYROXINE) 1.46 ng/dL (0.76-1.46); TOTAL PROTEIN 7.6 g/dL (6.4-8.2)
[2020-09-09 13:49] VITALS: BP 153/100
[2020-09-09] MEDS ORDERED: PHARMACOKINETIC MONITORING MC PRN (15:30)
[2020-09-09] MEDS ORDERED: PHARMACOKINETIC CONSULTATION MC ONE (15:30)
[2020-09-09] MEDS: INSULIN LISPRO 100 UNITS/ML, PEN SQ-INSULIN SCH ×2 (17:02→20:06)
[2020-09-09 20:07] VITALS: BP 139/83
[2020-09-09] MEDS: ATORVASTATIN 20 MG TABLET PO SCH (20:07)
[2020-09-09] MEDS: CARVEDILOL 25 MG TABLET PO SCH (20:07)
[2020-09-09] MEDS: SODIUM CHLORIDE FLUSH 10ML SYR IVF SCH ×2 (20:16→20:17)
[2020-09-09] MEDS ORDERED: INSULIN GLARGINE 100 UNITS/ML, PEN SQ-INSULIN SCH (21:00)
[2020-09-10 00:08] VITALS: BP 111/65
[2020-09-10] MEDS ORDERED: MIDAZOLAM 1 MG/ML, 2ML ONE ×2 (02:05→07:03)
[2020-09-10] MEDS ORDERED: FENTANYL PF 100 MCG/2ML ONE ×2 (02:05→07:03)
[2020-09-10 05:53] LABS: MEAN CORPUSCULAR HEMOGLOBIN 32.3 pg (27.5-34.5); MEAN CORPUSCULAR HGB CONC 34.1 g/dL (33.2-36.2); MEAN PLATELET VOLUME 7.8 fL (7.4-10.4); PLATELET COUNT 283 x10^3/uL (130-400); RED CELL DISTRIBUTION WIDTH 12.5 % (9.4-14.8)
[2020-09-10] MEDS: VANCOMYCIN 2,000 MG in SODIUM CHLORIDE 0.9% 500 ML IV SCH (06:00)
[2020-09-10 06:02] LABS: CHLORIDE 100 mmol/L (98-107)
[2020-09-10 06:08] LABS: ANION GAP 6 mmol/L (5-15); CALCIUM 8.6 mg/dL (8.5-10.1); CREATININE 1.37 mg/dL (0.7-1.3)
[2020-09-10 06:29] LABS: MD YES
[2020-09-10 06:31] LABS: <PLATELET ESTIMATE> ADEQUATE; <PLT MORPHOLOGY> NORMAL PLT MORPH; <RBC MORPHOLOGY> NORMAL; BAND#(MANUAL) 1.09 x10^3/uL; BANDS%(MANUAL) 7 % (0-7); LYMPH#(MANUAL) 2.34 x10^3/uL (1-3.4); LYMPHS% (MANUAL) 15 % (22-44); MONOS#(MANUAL) 2.18 x10^3/uL (0.3-2.7); MONOS% (MANUAL) 14 % (2-9); SEG#(MANUAL) 9.98 x10^3/uL (1.8-6.8); SEGS% (MANUAL) 64 % (42-75)
[2020-09-10] MEDS ORDERED: BUPIVACAINE/PF 0.5% ONE (06:48)
[2020-09-10] MEDS: INSULIN LISPRO 100 UNITS/ML, PEN SQ-INSULIN SCH ×6 (07:00→21:01)
[2020-09-10] MEDS ORDERED: ONDANSETRON 2MG/ML, 2ML ONE (07:04)
[2020-09-10] MEDS ORDERED: PROPOFOL 10 MG/ML, 20ML ONE (07:04)
[2020-09-10] MEDS ORDERED: DEXAMETHASONE 4 MG/ML, 5ML ONE (07:04)
[2020-09-10] MEDS ORDERED: SUCCINYLCHOLINE 20 MG/ML, 10ML ONE (07:04)
[2020-09-10] MEDS ORDERED: BUPIVACAINE/PF-EPI 0.5% 1:200K INFIL ONE (07:28)
[2020-09-10] MEDS ORDERED: FENTANYL PF 100 MCG/2ML IV PRN (08:00)
[2020-09-10] MEDS ORDERED: EPHEDRINE 50 MG/ML, 1ML IVPush PRN (08:00)
[2020-09-10] MEDS ORDERED: DIAZEPAM 5 MG/ML, 2ML IVPush PRN (08:00)
[2020-09-10] MEDS ORDERED: DIPHENHYDRAMINE 50 MG/ML, 1ML IVPush PRN (08:00)
[2020-09-10] MEDS ORDERED: OXYcodone 5 MG/5 ML ORAL.SOL UDC PO PRN (08:00)
[2020-09-10] MEDS ORDERED: LABETALOL 5MG/ML, 20ML IV PRN (08:00)
[2020-09-10] MEDS ORDERED: PROMETHAZINE 25 MG/ML, 1ML IVPush PRN (08:00)
[2020-09-10] MEDS ORDERED: ACETAMINOPHEN 325 MG TABLET PO PRN (08:00)
[2020-09-10] MEDS ORDERED: HYDROmorphone 1 MG/ML, 1ML INJ IVPush PRN (08:00)
[2020-09-10] MEDS ORDERED: ALBUTEROL SULFATE 2.5 MG/3 ML NPPB PRN (08:00)
[2020-09-10] MEDS ORDERED: MIDAZOLAM 1 MG/ML, 2ML IV PRN (08:00)
[2020-09-10] MEDS ORDERED: MEPERIDINE/PF 25MG/0.5ML IVPush PRN (08:00)
[2020-09-10] MEDS ORDERED: hydrALAzine 20 MG/ML, 1ML IV PRN (08:00)
[2020-09-10] MEDS ORDERED: ONDANSETRON 2MG/ML, 2ML IVPush PRN (08:00)
[2020-09-10] MEDS ORDERED: PROMETHAZINE 12.5 MG SUPP PR PRN (08:00)
[2020-09-10 08:39] VITALS: BP 117/84
[2020-09-10] MEDS ORDERED: INSULIN GLARGINE 100 UNITS/ML, PEN SQ-INSULIN SCH ×2 (09:00→21:00)
[2020-09-10] MEDS: CEFTRIAXONE PMX 2GM/50ML 50 ML IVPB SCH (09:10)
[2020-09-10] MEDS: AMLODIPINE 10 MG TAB PO SCH (09:10)
[2020-09-10] MEDS: CARVEDILOL 25 MG TABLET PO SCH ×2 (09:10→21:00)
[2020-09-10] MEDS: LISINOPRIL 40 MG TABLET PO SCH (09:10)
[2020-09-10] MEDS: SODIUM CHLORIDE FLUSH 10ML SYR IVF SCH ×4 (09:11→21:00)
[2020-09-10 12:25] VITALS: BP 121/71
[2020-09-10] MEDS: ENOXAPARIN 40 MG/0.4 ML SQ SCH (14:05)
[2020-09-10] MEDS ORDERED: INSULIN LISPRO 100 UNIT/ML, 3ML VIAL SQ ONE (17:30)
[2020-09-10 19:37] VITALS: BP 117/76
[2020-09-10 20:57] VITALS: BP 119/73
[2020-09-10] MEDS: ATORVASTATIN 20 MG TABLET PO SCH (21:00)
[2020-09-11] MEDS: VANCOMYCIN 2,000 MG in SODIUM CHLORIDE 0.9% 500 ML IV SCH (00:31)
[2020-09-11 00:37] VITALS: BP 129/82
[2020-09-11 05:20] LABS: BASOPHILS % (AUTO) 0 % (0-1); EOSINOPHILS % (AUTO) 0 % (1-7); LYMPHOCYTES % (AUTO) 9 % (22-44); MEAN CORPUSCULAR HEMOGLOBIN 32.1 pg (27.5-34.5); MEAN CORPUSCULAR HGB CONC 34.3 g/dL (33.2-36.2); MEAN PLATELET VOLUME 7.9 fL (7.4-10.4); MONOCYTES % (AUTO) 7 % (2-9); NEUTROPHILS % (AUTO) 84 % (42-75); PLATELET COUNT 271 x10^3/uL (130-400); RED BLOOD COUNT 3.32 x10^6/uL (4.38-5.82); RED CELL DISTRIBUTION WIDTH 12.6 % (9.4-14.8)
[2020-09-11 05:23] LABS: ANION GAP 6 mmol/L (5-15); CALCIUM 8.5 mg/dL (8.5-10.1); CHLORIDE 104 mmol/L (98-107); CREATININE 1.35 mg/dL (0.7-1.3)
[2020-09-11 06:18] LABS: MD SCAN
[2020-09-11 06:49] VITALS: BP 134/83
[2020-09-11] MEDS ORDERED: INSULIN LISPRO 100 UNITS/ML, PEN SQ-INSULIN SCH (07:00)
[2020-09-11] MEDS: CEFTRIAXONE PMX 2GM/50ML 50 ML IVPB SCH (07:23)
[2020-09-11] MEDS: LISINOPRIL 40 MG TABLET PO SCH (08:13)
[2020-09-11] MEDS: AMLODIPINE 10 MG TAB PO SCH (08:13)
[2020-09-11] MEDS: CARVEDILOL 25 MG TABLET PO SCH (08:14)
[2020-09-11] MEDS: INSULIN LISPRO 100 UNITS/ML, PEN SQ-INSULIN SCH ×4 (08:15→11:51)
[2020-09-11] MEDS: SODIUM CHLORIDE FLUSH 10ML SYR IVF SCH ×2 (08:16)
[2020-09-11] MEDS ORDERED: INSULIN GLARGINE 100 UNITS/ML, PEN SQ-INSULIN SCH (09:00)
[2020-09-11] MEDS ORDERED: CARV25TA12 PO (09:52)
[2020-09-11] MEDS ORDERED: CEPH750C9 PO (09:52)
[2020-09-11] MEDS ORDERED: LISI40TA PO (09:52)
[2020-09-11] MEDS ORDERED: AMLO-211 PO (09:52)
== END 2020-09-11 14:16 | disposition home or self-care (01) | DRG 464 ==
LOC: ED 11:53 → EDIP 11:59 → ED 13:02 → 3N 13:41 → DCLOUNGE 09-11 13:59
PROVIDERS: ADMIT Internal Medicine Infectious Disease; ATTEND Hospitalist
PROC: 0JBQ0ZZ Excision of Right Foot Subcutaneous Tissue and Fascia, Open Approach (ICD-10-PCS; 2020-09-10)
PROC: 0Y6T0Z2 Detachment at Right 3rd Toe, Mid, Open Approach (ICD-10-PCS; principal; 2020-09-10 07:00)
DX: S92.911A Unspecified fracture of right toe(s), initial encounter for closed fracture (principal); E11.52 Type 2 diabetes mellitus with diabetic peripheral angiopathy with gangrene; E87.1 Hypo-osmolality and hyponatremia; L03.115 Cellulitis of right lower limb; M86.171 Other acute osteomyelitis, right ankle and foot; T79.7XXA Traumatic subcutaneous emphysema, initial encounter; E11.69 Type 2 diabetes mellitus with other specified complication; G47.33 Obstructive sleep apnea (adult) (pediatric); Z20.822 Contact with and (suspected) exposure to COVID-19; I12.9 Hypertensive chronic kidney disease with stage 1 through stage 4 chronic kidney disease, or unspecified chronic kidney disease; K42.9 Umbilical hernia without obstruction or gangrene; D72.829 Elevated white blood cell count, unspecified; N18.2 Chronic kidney disease, stage 2 (mild); G62.9 Polyneuropathy, unspecified; E11.22 Type 2 diabetes mellitus with diabetic chronic kidney disease; Z79.4 Long term (current) use of insulin; Z82.3 Family history of stroke; Z82.49 Family history of ischemic heart disease and other diseases of the circulatory system; Z83.3 Family history of diabetes mellitus; Z79.899 Other long term (current) drug therapy; Z79.891 Long term (current) use of opiate analgesic; Z79.01 Long term (current) use of anticoagulants; Z88.0 Allergy status to penicillin
CPT/HCPCS: 36415; 73660; 96365; 96375; 99285; S0020; 71045; 80048; 80076; 82040; 82947; 82962; 83036; 83605; 83735; 84100; 84439; 84443; 85025; 85610; 85651; 86140; 87040; 87070; 87075; 87077; 87205; 87635; G0378; J0696; J1100; J1650; J2250; J2405; J2704; J3010; J3370; J0330; J1815; J7040

== ENCOUNTER 2020-09-18 09:46 | Inpatient (IN) | payer MEDICAID ==
[~2020-09-18] VITALS: Ht 177.8 cm; Wt 127.3 kg
[~2020-09-18 09:46] MED LIST changes: +AMLO-211 PO; +ATOR20TA37 PO; +CARV25TA12 PO; +CEPH750C9 PO; +HYDR25TA6 PO; -LISI40TA PO; +LISI40TA9 PO; +METF500T17 PO
--- NOTE | 2020-09-18 10:10 | NUR ---
AMBULATORY TO ED ROOM W/ LIMPING GAIT. CAST BOOT ON RT FOOT. GAUZE DRESSING REMOVED. 3RD TOE AMPUTATED 8 DAYS AGO. RT FOOT: REDNESS, SWELLING, PURULENT DISCHARGE FROM SURGICAL SITE, APPROXIMATELY 9 BLACK SUTURES PRESENT. PRINCE, MED STUDENT NOW AT BS.
[2020-09-18] MEDS ORDERED: CEPH-375 PO (10:21)
[2020-09-18] MEDS ORDERED: SODIUM CHLORIDE FLUSH 10ML SYR IVF ONE (10:30)
--- NOTE | 2020-09-18 10:37 | NUR ---
LAB AT BS.
--- NOTE | 2020-09-18 10:55 | NUR ---
DOPPLER PULSE RT FOOT: 76 BPM STRONG & REGULAR
[2020-09-18 11:02] LABS: BASOPHILS % (AUTO) 0 % (0-1); EOSINOPHILS % (AUTO) 0 % (1-7); LYMPHOCYTES % (AUTO) 11 % (22-44); MEAN CORPUSCULAR HEMOGLOBIN 31.7 pg (27.5-34.5); MEAN CORPUSCULAR HGB CONC 34.2 g/dL (33.2-36.2); MEAN PLATELET VOLUME 7.3 fL (7.4-10.4); MONOCYTES % (AUTO) 8 % (2-9); NEUTROPHILS % (AUTO) 81 % (42-75); PLATELET COUNT 472 x10^3/uL (130-400); RED BLOOD COUNT 3.68 x10^6/uL (4.38-5.82); RED CELL DISTRIBUTION WIDTH 12.8 % (9.4-14.8)
[2020-09-18 11:03] LABS: MD NO
[2020-09-18 11:07] LABS: ALBUMIN 2.7 g/dL (3.4-5.0); ANION GAP 10 mmol/L (5-15); CALCIUM 9.4 mg/dL (8.5-10.1); CHLORIDE 97 mmol/L (98-107)
[2020-09-18 11:08] LABS: CREATININE 1.35 mg/dL (0.7-1.3)
[2020-09-18] MEDS ORDERED: VANCOMYCIN PER PHARMACY MC ONE (11:30)
[2020-09-18] MEDS ORDERED: CEFTRIAXONE PMX 1GM/50ML 50 ML IVPB ONE (11:30)
[2020-09-18] MEDS ORDERED: VANCOMYCIN 2,500 MG in SODIUM CHLORIDE 0.9% 500 ML IV ONE (11:30)
--- NOTE | 2020-09-18 11:32 | NUR ---
SUTURES REMOVED PER MED STUDENT.
[2020-09-18] MEDS ORDERED: CEFTRIAXONE PMX 1GM/50ML 50 ML ONE (12:10)
--- NOTE | 2020-09-18 12:53 | NUR ---
PT ASSESSED FOR 2ND IV SITE. U/S IV ASSIST REQUESTED.
--- NOTE | 2020-09-18 12:59 | NUR ---
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 VANCO INFUSION HELD FOR CT: 219 ML TO BE INFUSED. IV SITE FLUSHED W/ SALINE.
--- NOTE | 2020-09-18 13:15 | NUR ---
RETURNED FROM CT. ROCEPHIN INFUSION RESTARTED. IV SITE PATENT.
--- NOTE | 2020-09-18 13:18 | NUR ---
CALLED RECEIVING UNIT: RN NOT AVAILABLE.
--- NOTE | 2020-09-18 13:24 | NUR ---
PT REPORT TO IRVING GAMBOA FOR ROOM 346 Addendum: 09/18/20 at 1326 by MELVI INFORMED BEE THAT ROCEPHIN HAS NOT BEEN STARTED; WILL SEND MEDICATION TO FLOOR W/ PT
[2020-09-18] MEDS ORDERED: OMNIPAQUE 350 MG/ML, 150 ML BOTTLE ONE (13:28)
--- NOTE | 2020-09-18 13:40 | NUR ---
DR KAISER AT BS
[2020-09-18 14:28] VITALS: BP 122/78
[2020-09-18] MEDS: SODIUM CHLORIDE 0.9% 1,000 ML IV SCH (14:29)
[2020-09-18] MEDS: DEXTROSE IV SCH (15:50)
[2020-09-18] MEDS: CEFEPIME IV SCH (15:50)
[2020-09-18] MEDS: INSULIN LISPRO 100 UNITS/ML, PEN SQ-INSULIN SCH ×2 (15:52→20:59)
[2020-09-18] MEDS: METRONIDAZOLE PMX 500MG/100ML 100 ML IV SCH (16:47)
[2020-09-18 18:53] VITALS: BP 151/84
[2020-09-19] MEDS: DEXTROSE IV SCH ×2 (00:18→07:42)
[2020-09-19] MEDS: CEFEPIME IV SCH ×2 (00:18→07:42)
[2020-09-19 00:35] VITALS: BP 128/77
[2020-09-19] MEDS: METRONIDAZOLE PMX 500MG/100ML 100 ML IV SCH ×3 (00:54→16:34)
[2020-09-19] MEDS: SODIUM CHLORIDE 0.9% 1,000 ML IV SCH ×2 (04:10→23:49)
[2020-09-19 05:58] LABS: BASOPHILS % (AUTO) 1 % (0-1); EOSINOPHILS % (AUTO) 1 % (1-7); LYMPHOCYTES % (AUTO) 12 % (22-44); MEAN CORPUSCULAR HEMOGLOBIN 31.8 pg (27.5-34.5); MEAN CORPUSCULAR HGB CONC 34.4 g/dL (33.2-36.2); MEAN PLATELET VOLUME 7.8 fL (7.4-10.4); MONOCYTES % (AUTO) 8 % (2-9); NEUTROPHILS % (AUTO) 79 % (42-75); PLATELET COUNT 431 x10^3/uL (130-400); RED BLOOD COUNT 3.49 x10^6/uL (4.38-5.82); RED CELL DISTRIBUTION WIDTH 12.9 % (9.4-14.8)
[2020-09-19 06:05] LABS: MD NO
[2020-09-19 06:09] LABS: CALCIUM 8.7 mg/dL (8.5-10.1); CHLORIDE 100 mmol/L (98-107)
[2020-09-19 06:15] LABS: ALANINE AMINOTRANSFERASE 37 U/L (12-78); ALBUMIN 2.5 g/dL (3.4-5.0); ALKALINE PHOSPHATASE 134 U/L (45-117); ANION GAP 8 mmol/L (5-15); BILIRUBIN,TOTAL 0.8 mg/dL (0.2-1.0); TOTAL PROTEIN 7.8 g/dL (6.4-8.2)
[2020-09-19] MEDS: HEPARIN 5,000 UNITS/ML, 1ML SQ SCH ×3 (06:28→22:30)
[2020-09-19] MEDS ORDERED: ASPIRIN 325 MG TABLET PO SCH (06:30)
[2020-09-19 06:48] VITALS: BP 125/77
[2020-09-19] MEDS: INSULIN LISPRO 100 UNITS/ML, PEN SQ-INSULIN SCH ×4 (07:41→20:13)
[2020-09-19] MEDS: DAPTOMYCIN 700 MG in SODIUM CHLORIDE 0.9% 100 ML IV SCH (12:07)
[2020-09-19 12:38] VITALS: BP 160/83
[2020-09-19 20:27] VITALS: BP 169/72
[2020-09-19 21:28] VITALS: BP 148/88
[2020-09-20] VITALS: BP 167/99
[2020-09-20 01:20] VITALS: BP 147/88
[2020-09-20] MEDS: METRONIDAZOLE PMX 500MG/100ML 100 ML IV SCH ×4 (01:28→23:54)
[2020-09-20] MEDS: ASPIRIN 81 MG TABLET EC PO SCH (03:04)
[2020-09-20] MEDS: HEPARIN 5,000 UNITS/ML, 1ML SQ SCH (03:05)
[2020-09-20 07:00] VITALS: BP 171/96
[2020-09-20] MEDS: INSULIN LISPRO 100 UNITS/ML, PEN SQ-INSULIN SCH ×4 (07:00→19:58)
[2020-09-20] MEDS ORDERED: FENTANYL PF 100 MCG/2ML ONE (07:11)
[2020-09-20] MEDS ORDERED: FLUMAZENIL 0.1 MG/1 ML, 5ML ONE (07:11)
[2020-09-20] MEDS ORDERED: MIDAZOLAM 1 MG/ML, 5ML ONE (07:11)
[2020-09-20] MEDS ORDERED: NALOXONE 1 MG/ML, 2ML ONE (07:11)
[2020-09-20] MEDS ORDERED: HEPARIN 1,000 UNITS/ML, 10ML ONE (07:11)
[2020-09-20] MEDS ORDERED: PROTAMINE SULFATE 10 MG/ML, 25ML ONE (07:11)
[2020-09-20] MEDS ORDERED: LIDOCAINE 1%, 10ML ONE (07:26)
[2020-09-20] MEDS ORDERED: VISIPAQUE 270 MG/ML, 150ML BOTTLE ONE (09:15)
[2020-09-20 11:13] LABS: BASOPHILS % (AUTO) 1 % (0-1); EOSINOPHILS % (AUTO) 1 % (1-7); LYMPHOCYTES % (AUTO) 9 % (22-44); MEAN CORPUSCULAR HEMOGLOBIN 31.6 pg (27.5-34.5); MEAN CORPUSCULAR HGB CONC 34.5 g/dL (33.2-36.2); MEAN PLATELET VOLUME 7.2 fL (7.4-10.4); MONOCYTES % (AUTO) 8 % (2-9); NEUTROPHILS % (AUTO) 82 % (42-75); PLATELET COUNT 396 x10^3/uL (130-400); RED BLOOD COUNT 3.16 x10^6/uL (4.38-5.82); RED CELL DISTRIBUTION WIDTH 13.1 % (9.4-14.8)
[2020-09-20 11:18] LABS: MD NO
[2020-09-20 11:24] LABS: ANION GAP 7 mmol/L (5-15); CALCIUM 8.6 mg/dL (8.5-10.1); CHLORIDE 105 mmol/L (98-107)
[2020-09-20 11:26] LABS: CREATININE 1.03 mg/dL (0.7-1.3)
[2020-09-20] MEDS: DAPTOMYCIN 700 MG in SODIUM CHLORIDE 0.9% 100 ML IV SCH (11:42)
[2020-09-20] MEDS ORDERED: CHLORHEXIDINE 15 ML UDC MM ONE (12:00)
[2020-09-20 12:20] VITALS: BP 145/90
[2020-09-20] MEDS ORDERED: BUPIVACAINE/PF 0.5% ONE (12:32)
[2020-09-20] MEDS ORDERED: LIDOCAINE/PF 1%, 30ML ONE (12:32)
[2020-09-20] MEDS ORDERED: MIDAZOLAM 1 MG/ML, 2ML ONE (12:37)
[2020-09-20] MEDS ORDERED: FENTANYL PF 250 MCG/5ML ONE (12:37)
[2020-09-20] MEDS ORDERED: hydrALAzine 20 MG/ML, 1ML IV PRN (14:00)
[2020-09-20] MEDS ORDERED: LABETALOL 5MG/ML, 20ML IV PRN (14:00)
[2020-09-20] MEDS ORDERED: PROMETHAZINE 25 MG/ML, 1ML IVPush PRN (14:00)
[2020-09-20] MEDS: SODIUM CHLORIDE 0.9% 1,000 ML IV SCH ×2 (14:00→19:57)
[2020-09-20] MEDS ORDERED: ONDANSETRON 2MG/ML, 2ML IVPush PRN (14:00)
[2020-09-20] MEDS ORDERED: OXYcodone 5 MG/5 ML ORAL.SOL UDC PO PRN (14:00)
[2020-09-20] MEDS ORDERED: FENTANYL PF 100 MCG/2ML IV PRN (14:00)
[2020-09-20] MEDS ORDERED: HYDROmorphone 1 MG/ML, 1ML INJ IVPush PRN (14:00)
[2020-09-20] MEDS ORDERED: ONDANSETRON 2MG/ML, 2ML ONE (14:21)
[2020-09-20] MEDS ORDERED: PROPOFOL 10 MG/ML, 20ML ONE (14:21)
[2020-09-20] MEDS ORDERED: SUCCINYLCHOLINE 20 MG/ML, 10ML ONE (14:21)
[2020-09-20] MEDS ORDERED: ROCURONIUM 10MG/ML,5ML ONE (14:21)
[2020-09-20 19:31] VITALS: BP 146/94
[2020-09-21 02:23] VITALS: BP 136/80
[2020-09-21 04:16] VITALS: BP 162/99
[2020-09-21 05:29] LABS: ANION GAP 7 mmol/L (5-15); BASOPHILS % (AUTO) 0 % (0-1); CALCIUM 8.1 mg/dL (8.5-10.1); CHLORIDE 103 mmol/L (98-107); EOSINOPHILS % (AUTO) 1 % (1-7); LYMPHOCYTES % (AUTO) 12 % (22-44); MEAN CORPUSCULAR HEMOGLOBIN 31.5 pg (27.5-34.5); MEAN PLATELET VOLUME 7.5 fL (7.4-10.4); MONOCYTES % (AUTO) 9 % (2-9); NEUTROPHILS % (AUTO) 78 % (42-75); PLATELET COUNT 425 x10^3/uL (130-400); RED BLOOD COUNT 3.08 x10^6/uL (4.38-5.82)
[2020-09-21 05:33] LABS: MD NO
[2020-09-21] MEDS: ASPIRIN 81 MG TABLET EC PO SCH (05:37)
[2020-09-21 05:39] VITALS: BP 144/87
[2020-09-21 06:46] VITALS: BP 119/72
[2020-09-21] MEDS: SODIUM CHLORIDE 0.9% 1,000 ML IV SCH ×2 (07:11→20:20)
[2020-09-21] MEDS: INSULIN LISPRO 100 UNITS/ML, PEN SQ-INSULIN SCH ×4 (07:21→20:21)
[2020-09-21] MEDS: METRONIDAZOLE PMX 500MG/100ML 100 ML IV SCH (07:22)
[2020-09-21] MEDS: DAPTOMYCIN 700 MG in SODIUM CHLORIDE 0.9% 100 ML IV SCH (11:34)
[2020-09-21 12:48] VITALS: BP 135/78
[2020-09-21] MEDS ORDERED: ACETAMINOPHEN 325 MG TABLET PO PRN (14:00)
[2020-09-21] MEDS ORDERED: SENNOSIDES 8.6 MG TABLET PO PRN (14:00)
[2020-09-21] MEDS: CEFAZOLIN 2,000 MG in SODIUM CHLORIDE 0.9% 50 ML IV SCH ×2 (15:17→23:01)
[2020-09-21 19:01] VITALS: BP 164/99
[2020-09-21] MEDS: ATORVASTATIN 40 MG TABLET PO SCH (20:21)
[2020-09-21] MEDS: DOCUSATE 100 MG CAPSULE PO SCH (20:21)
[2020-09-21] MEDS: CARVEDILOL 25 MG TABLET PO SCH (20:21)
[2020-09-22 01:25] VITALS: BP 162/90
[2020-09-22] MEDS: ASPIRIN 81 MG TABLET EC PO SCH (06:19)
[2020-09-22] MEDS: SODIUM CHLORIDE 0.9% 1,000 ML IV SCH (06:19)
[2020-09-22] MEDS: CEFAZOLIN 2,000 MG in SODIUM CHLORIDE 0.9% 50 ML IV SCH ×3 (06:20→22:59)
[2020-09-22 06:22] LABS: BASOPHILS % (AUTO) 1 % (0-1); EOSINOPHILS % (AUTO) 1 % (1-7); LYMPHOCYTES % (AUTO) 14 % (22-44); MEAN CORPUSCULAR HEMOGLOBIN 32.1 pg (27.5-34.5); MEAN CORPUSCULAR HGB CONC 34.9 g/dL (33.2-36.2); MEAN PLATELET VOLUME 7.1 fL (7.4-10.4); MONOCYTES % (AUTO) 9 % (2-9); NEUTROPHILS % (AUTO) 75 % (42-75); PLATELET COUNT 410 x10^3/uL (130-400); RED BLOOD COUNT 2.96 x10^6/uL (4.38-5.82); RED CELL DISTRIBUTION WIDTH 13.1 % (9.4-14.8)
[2020-09-22 06:28] LABS: MD NO
[2020-09-22 06:34] LABS: ANION GAP 7 mmol/L (5-15); CALCIUM 8.3 mg/dL (8.5-10.1); CHLORIDE 105 mmol/L (98-107)
[2020-09-22 06:37] LABS: CREATININE 0.93 mg/dL (0.7-1.3)
[2020-09-22 07:48] VITALS: BP 144/90
[2020-09-22] MEDS: CARVEDILOL 25 MG TABLET PO SCH ×2 (08:10→21:23)
[2020-09-22] MEDS: POLYETHYLENE GLYCOL 17 GM PACKET PO SCH (08:11)
[2020-09-22] MEDS: AMLODIPINE 10 MG TAB PO SCH (08:11)
[2020-09-22] MEDS: DOCUSATE 100 MG CAPSULE PO SCH ×2 (08:11→21:23)
[2020-09-22] MEDS: LISINOPRIL 20 MG TABLET PO SCH (08:11)
[2020-09-22] MEDS: ENOXAPARIN 40 MG/0.4 ML SQ SCH (08:13)
[2020-09-22] MEDS: INSULIN LISPRO 100 UNITS/ML, PEN SQ-INSULIN SCH ×4 (08:18→21:24)
[2020-09-22 15:08] VITALS: BP 127/83
[2020-09-22 20:34] VITALS: BP 141/85
[2020-09-22] MEDS: ATORVASTATIN 40 MG TABLET PO SCH (21:23)
[2020-09-23 02:21] VITALS: BP 130/85
[2020-09-23 05:03] LABS: BASOPHILS % (AUTO) 0 % (0-1); EOSINOPHILS % (AUTO) 2 % (1-7); LYMPHOCYTES % (AUTO) 22 % (22-44); MEAN CORPUSCULAR HEMOGLOBIN 31.7 pg (27.5-34.5); MEAN CORPUSCULAR HGB CONC 34.4 g/dL (33.2-36.2); MEAN PLATELET VOLUME 7.1 fL (7.4-10.4); MONOCYTES % (AUTO) 9 % (2-9); NEUTROPHILS % (AUTO) 68 % (42-75); PLATELET COUNT 423 x10^3/uL (130-400); RED BLOOD COUNT 2.84 x10^6/uL (4.38-5.82); RED CELL DISTRIBUTION WIDTH 13.2 % (9.4-14.8)
[2020-09-23 05:05] LABS: MD NO
[2020-09-23 05:15] LABS: ANION GAP 6 mmol/L (5-15); CALCIUM 8.4 mg/dL (8.5-10.1); CHLORIDE 108 mmol/L (98-107)
[2020-09-23] MEDS: ASPIRIN 81 MG TABLET EC PO SCH (06:21)
[2020-09-23] MEDS: CEFAZOLIN 2,000 MG in SODIUM CHLORIDE 0.9% 50 ML IV SCH ×3 (06:21→22:41)
[2020-09-23 07:59] VITALS: BP 143/90
[2020-09-23] MEDS: CARVEDILOL 25 MG TABLET PO SCH ×2 (08:02→21:23)
[2020-09-23] MEDS: INSULIN LISPRO 100 UNITS/ML, PEN SQ-INSULIN SCH ×4 (08:02→21:24)
[2020-09-23] MEDS: ENOXAPARIN 40 MG/0.4 ML SQ SCH (08:02)
[2020-09-23] MEDS: LISINOPRIL 20 MG TABLET PO SCH (08:02)
[2020-09-23] MEDS: DOCUSATE 100 MG CAPSULE PO SCH (08:02)
[2020-09-23] MEDS: AMLODIPINE 10 MG TAB PO SCH (08:02)
[2020-09-23] MEDS: POLYETHYLENE GLYCOL 17 GM PACKET PO SCH (08:03)
[2020-09-23 12:30] VITALS: BP 131/83
[2020-09-23 20:48] VITALS: BP 132/88
[2020-09-23] MEDS: ATORVASTATIN 40 MG TABLET PO SCH (21:23)
[2020-09-23] MEDS: INSULIN GLARGINE 100 UNITS/ML, PEN SQ-INSULIN SCH (21:24)
[2020-09-24 01:08] VITALS: BP 153/89
[2020-09-24 04:41] LABS: BASOPHILS % (AUTO) 1 % (0-1); EOSINOPHILS % (AUTO) 2 % (1-7); LYMPHOCYTES % (AUTO) 23 % (22-44); MEAN CORPUSCULAR HEMOGLOBIN 31.8 pg (27.5-34.5); MEAN CORPUSCULAR HGB CONC 34.5 g/dL (33.2-36.2); MEAN PLATELET VOLUME 7.3 fL (7.4-10.4); MONOCYTES % (AUTO) 9 % (2-9); NEUTROPHILS % (AUTO) 65 % (42-75); PLATELET COUNT 451 x10^3/uL (130-400); RED BLOOD COUNT 2.98 x10^6/uL (4.38-5.82)
[2020-09-24 04:43] LABS: MD NO
[2020-09-24 04:48] LABS: ANION GAP 7 mmol/L (5-15); CALCIUM 8.3 mg/dL (8.5-10.1); CHLORIDE 105 mmol/L (98-107); CREATININE 1.01 mg/dL (0.7-1.3)
[2020-09-24] MEDS: ASPIRIN 81 MG TABLET EC PO SCH (06:18)
[2020-09-24] MEDS: CEFAZOLIN 2,000 MG in SODIUM CHLORIDE 0.9% 50 ML IV SCH ×3 (06:18→23:30)
[2020-09-24 06:59] VITALS: BP 162/98
[2020-09-24] MEDS: ENOXAPARIN 40 MG/0.4 ML SQ SCH (08:02)
[2020-09-24] MEDS: AMLODIPINE 10 MG TAB PO SCH (08:06)
[2020-09-24] MEDS: INSULIN LISPRO 100 UNITS/ML, PEN SQ-INSULIN SCH ×4 (08:06→20:27)
[2020-09-24] MEDS: CARVEDILOL 25 MG TABLET PO SCH ×2 (08:07→20:26)
[2020-09-24] MEDS: LISINOPRIL 20 MG TABLET PO SCH (08:07)
[2020-09-24 11:31] LABS: HCT (SEDRATE) 28.8 % (39.2-51.8)
[2020-09-24 12:19] LABS: SEDIMENTATION RATE > 120 mm/hr (0-10)
[2020-09-24 14:47] VITALS: BP 125/83
[2020-09-24 20:00] VITALS: BP 162/92
[2020-09-24] MEDS: ATORVASTATIN 40 MG TABLET PO SCH (20:26)
[2020-09-24] MEDS: INSULIN GLARGINE 100 UNITS/ML, PEN SQ-INSULIN SCH (20:27)
[2020-09-25 00:13] VITALS: BP 138/88
[2020-09-25] MEDS: ASPIRIN 81 MG TABLET EC PO SCH (05:32)
[2020-09-25 06:51] VITALS: BP 117/55
[2020-09-25] MEDS: CARVEDILOL 25 MG TABLET PO SCH ×2 (07:45→20:01)
[2020-09-25] MEDS: INSULIN LISPRO 100 UNITS/ML, PEN SQ-INSULIN SCH ×7 (07:45→20:02)
[2020-09-25] MEDS: AMLODIPINE 10 MG TAB PO SCH (07:45)
[2020-09-25] MEDS: CEFAZOLIN 2,000 MG in SODIUM CHLORIDE 0.9% 50 ML IV SCH ×3 (07:45→23:49)
[2020-09-25] MEDS: LISINOPRIL 20 MG TABLET PO SCH (07:45)
[2020-09-25] MEDS: ENOXAPARIN 40 MG/0.4 ML SQ SCH (07:46)
[2020-09-25] MEDS ORDERED: INSULIN LISPRO 100 UNITS/ML, PEN SQ-INSULIN SCH (08:00)
[2020-09-25 13:57] VITALS: BP 147/73
[2020-09-25 18:54] VITALS: BP 159/91
[2020-09-25] MEDS: ATORVASTATIN 40 MG TABLET PO SCH (20:01)
[2020-09-25] MEDS: INSULIN GLARGINE 100 UNITS/ML, PEN SQ-INSULIN SCH (20:03)
[2020-09-26 00:51] VITALS: BP 150/98
[2020-09-26] MEDS: ASPIRIN 81 MG TABLET EC PO SCH (05:08)
[2020-09-26 05:34] LABS: BASOPHILS % (AUTO) 1 % (0-1); EOSINOPHILS % (AUTO) 2 % (1-7); LYMPHOCYTES % (AUTO) 25 % (22-44); MEAN CORPUSCULAR HEMOGLOBIN 31.4 pg (27.5-34.5); MEAN CORPUSCULAR HGB CONC 34.4 g/dL (33.2-36.2); MEAN PLATELET VOLUME 6.9 fL (7.4-10.4); MONOCYTES % (AUTO) 9 % (2-9); NEUTROPHILS % (AUTO) 63 % (42-75); PLATELET COUNT 468 x10^3/uL (130-400); RED BLOOD COUNT 3.16 x10^6/uL (4.38-5.82); RED CELL DISTRIBUTION WIDTH 13.5 % (9.4-14.8)
[2020-09-26 05:37] LABS: MD NO
[2020-09-26 05:46] LABS: ALBUMIN 2.3 g/dL (3.4-5.0); ANION GAP 5 mmol/L (5-15); CALCIUM 8.6 mg/dL (8.5-10.1); CHLORIDE 105 mmol/L (98-107)
[2020-09-26 05:50] LABS: ALANINE AMINOTRANSFERASE 37 U/L (12-78); ALKALINE PHOSPHATASE 121 U/L (45-117); BILIRUBIN,TOTAL 0.4 mg/dL (0.2-1.0); CREATININE 1.12 mg/dL (0.7-1.3)
[2020-09-26] MEDS: INSULIN LISPRO 100 UNITS/ML, PEN SQ-INSULIN SCH ×7 (07:00→19:53)
[2020-09-26] MEDS: CARVEDILOL 25 MG TABLET PO SCH ×2 (07:57→19:52)
[2020-09-26] MEDS: LISINOPRIL 20 MG TABLET PO SCH (07:58)
[2020-09-26] MEDS: CEFAZOLIN 2,000 MG in SODIUM CHLORIDE 0.9% 50 ML IV SCH (07:58)
[2020-09-26] MEDS: AMLODIPINE 10 MG TAB PO SCH (07:58)
[2020-09-26] MEDS: ENOXAPARIN 40 MG/0.4 ML SQ SCH (07:58)
[2020-09-26 08:13] VITALS: BP 147/93
[2020-09-26] MEDS: CEPHALEXIN 500 MG CAPSULE PO SCH ×2 (12:25→19:52)
[2020-09-26 13:11] VITALS: BP 126/83
[2020-09-26 19:29] VITALS: BP 135/86
[2020-09-26] MEDS: ATORVASTATIN 40 MG TABLET PO SCH (19:52)
[2020-09-26] MEDS: INSULIN GLARGINE 100 UNITS/ML, PEN SQ-INSULIN SCH (19:53)
[2020-09-27 00:45] VITALS: BP 148/86
[2020-09-27] MEDS: CEPHALEXIN 500 MG CAPSULE PO SCH ×3 (05:31→20:30)
[2020-09-27] MEDS: ASPIRIN 81 MG TABLET EC PO SCH (05:31)
[2020-09-27] MEDS: INSULIN LISPRO 100 UNITS/ML, PEN SQ-INSULIN SCH ×7 (07:00→20:31)
[2020-09-27 07:22] VITALS: BP 137/89
[2020-09-27] MEDS: CARVEDILOL 25 MG TABLET PO SCH ×2 (07:42→20:30)
[2020-09-27] MEDS: AMLODIPINE 10 MG TAB PO SCH (07:42)
[2020-09-27] MEDS: LISINOPRIL 20 MG TABLET PO SCH (07:42)
[2020-09-27] MEDS: ENOXAPARIN 40 MG/0.4 ML SQ SCH (07:43)
[2020-09-27 12:44] VITALS: BP 121/82
[2020-09-27] MEDS ORDERED: INSU100I11 SQ-INSULIN ×2 (15:02)
[2020-09-27] MEDS ORDERED: ATOR40TA78 PO (15:02)
[2020-09-27] MEDS ORDERED: ASPI81TA45 PO (15:02)
[2020-09-27] MEDS ORDERED: CEPH-376 PO (15:02)
[2020-09-27 19:04] VITALS: BP 122/79
[2020-09-27 20:29] VITALS: BP 139/91
[2020-09-27] MEDS: ATORVASTATIN 40 MG TABLET PO SCH (20:30)
[2020-09-27] MEDS: INSULIN GLARGINE 100 UNITS/ML, PEN SQ-INSULIN SCH (20:31)
[2020-09-28 01:05] VITALS: BP 124/83
[2020-09-28] MEDS: ASPIRIN 81 MG TABLET EC PO SCH (05:11)
[2020-09-28] MEDS: CEPHALEXIN 500 MG CAPSULE PO SCH (05:11)
[2020-09-28] MEDS: CARVEDILOL 25 MG TABLET PO SCH (07:35)
[2020-09-28] MEDS: AMLODIPINE 10 MG TAB PO SCH (07:35)
[2020-09-28] MEDS: LISINOPRIL 20 MG TABLET PO SCH (07:35)
[2020-09-28] MEDS: ENOXAPARIN 40 MG/0.4 ML SQ SCH (07:36)
[2020-09-28] MEDS: INSULIN LISPRO 100 UNITS/ML, PEN SQ-INSULIN SCH ×2 (07:36→07:37)
[2020-09-28 07:59] VITALS: BP 140/92
[2020-09-29] MEDS ORDERED: CEPH-376 PO (10:12)
[2020-09-29] MEDS ORDERED: INSU100I11 SQ-INSULIN (10:12)
== END 2020-09-28 10:15 | disposition home or self-care (01) | DRG 617 ==
LOC: ED 12:32 → EDIP 12:37 → 3N 14:16 → DCLOUNGE 09-28 10:07
PROVIDERS: ADMIT Internal Medicine; ATTEND Family Medicine
PROC: 0Y6M0ZB Detachment at Right Foot, Partial 2nd Ray, Open Approach (ICD-10-PCS; 2020-09-20)
PROC: 0Y6M0ZD Detachment at Right Foot, Partial 4th Ray, Open Approach (ICD-10-PCS; 2020-09-20)
PROC: 0Y6M0ZF Detachment at Right Foot, Partial 5th Ray, Open Approach (ICD-10-PCS; 2020-09-20)
PROC: 0L8N0ZZ Division of Right Lower Leg Tendon, Open Approach (ICD-10-PCS; 2020-09-20)
PROC: B4101ZZ Fluoroscopy of Abdominal Aorta using Low Osmolar Contrast (ICD-10-PCS; 2020-09-20)
PROC: B41F1ZZ Fluoroscopy of Right Lower Extremity Arteries using Low Osmolar Contrast (ICD-10-PCS; 2020-09-20)
PROC: 0Y6M0Z9 Detachment at Right Foot, Partial 1st Ray, Open Approach (ICD-10-PCS; principal; 2020-09-20 14:30)
DX: E11.69 Type 2 diabetes mellitus with other specified complication (principal); E11.52 Type 2 diabetes mellitus with diabetic peripheral angiopathy with gangrene; Z68.41 Body mass index [BMI] 40.0-44.9, adult; L03.115 Cellulitis of right lower limb; M86.171 Other acute osteomyelitis, right ankle and foot; I96 Gangrene, not elsewhere classified; D64.9 Anemia, unspecified; E11.22 Type 2 diabetes mellitus with diabetic chronic kidney disease; E11.628 Type 2 diabetes mellitus with other skin complications; E11.41 Type 2 diabetes mellitus with diabetic mononeuropathy; E11.42 Type 2 diabetes mellitus with diabetic polyneuropathy; E66.9 Obesity, unspecified; Z88.0 Allergy status to penicillin; E78.5 Hyperlipidemia, unspecified; G47.33 Obstructive sleep apnea (adult) (pediatric); I12.9 Hypertensive chronic kidney disease with stage 1 through stage 4 chronic kidney disease, or unspecified chronic kidney disease; I70.221 Atherosclerosis of native arteries of extremities with rest pain, right leg; K42.9 Umbilical hernia without obstruction or gangrene; M62.461 Contracture of muscle, right lower leg; R50.82 Postprocedural fever; N18.2 Chronic kidney disease, stage 2 (mild); Z89.421 Acquired absence of other right toe(s); Z79.4 Long term (current) use of insulin; B95.4 Other streptococcus as the cause of diseases classified elsewhere; B95.8 Unspecified staphylococcus as the cause of diseases classified elsewhere; F10.21 Alcohol dependence, in remission; Z20.822 Contact with and (suspected) exposure to COVID-19
CPT/HCPCS: 36415; 73660; 96374; 99285; J3490; S0020; 36247; 71045; 75710; 76937; 80048; 80053; 82040; 82962; 83735; 85025; 85651; 86140; 87015; 87040; 87070; 87075; 87077; 87102; 87116; 87186; 87205; 87206; 87635; 88305; 88311; 93922; 99156; 99157; C1894; G0378; J0690; J0878; J1644; J1650; J2250; J2405; J2704; J2720; J3010; J3370; Q9966; Q9967; C1751; C1760; C1768; C1769; G0269; J0330; J0692; J1815; J2310; J7030; J7040

== ENCOUNTER → 2020-10-02 | Outpatient (CLI) | payer MEDICAID ==
[~2020-10-02] MED LIST changes: +ASPI81TA45 PO; +ATOR40TA78 PO; +CEPH-375 PO; +CEPH-376 PO; +INSU100I11 SQ-INSULIN
== END | disposition home or self-care (01) ==
LOC: WOUND 12:33
PROVIDERS: ATTEND Internal Medicine
DX: T87.81 Dehiscence of amputation stump (principal); E11.622 Type 2 diabetes mellitus with other skin ulcer; I70.238 Atherosclerosis of native arteries of right leg with ulceration of other part of lower leg; L97.812 Non-pressure chronic ulcer of other part of right lower leg with fat layer exposed; L03.115 Cellulitis of right lower limb; E11.69 Type 2 diabetes mellitus with other specified complication; M86.171 Other acute osteomyelitis, right ankle and foot; G47.30 Sleep apnea, unspecified; E11.52 Type 2 diabetes mellitus with diabetic peripheral angiopathy with gangrene; I96 Gangrene, not elsewhere classified; E78.5 Hyperlipidemia, unspecified; I12.9 Hypertensive chronic kidney disease with stage 1 through stage 4 chronic kidney disease, or unspecified chronic kidney disease; E11.22 Type 2 diabetes mellitus with diabetic chronic kidney disease; N18.2 Chronic kidney disease, stage 2 (mild); E11.42 Type 2 diabetes mellitus with diabetic polyneuropathy; E66.01 Morbid (severe) obesity due to excess calories; Z68.37 Body mass index [BMI] 37.0-37.9, adult; Z88.0 Allergy status to penicillin; Z79.4 Long term (current) use of insulin; Z79.01 Long term (current) use of anticoagulants; Z79.891 Long term (current) use of opiate analgesic; Z79.899 Other long term (current) drug therapy; Y83.5 Amputation of limb(s) as the cause of abnormal reaction of the patient, or of later complication, without mention of misadventure at the time of the procedure; Y92.238 Other place in hospital as the place of occurrence of the external cause
CPT/HCPCS: 99214

== ENCOUNTER 2020-10-09 08:56 | Outpatient (CLI) | payer MEDICAID | END 2020-10-09 23:59 | disposition home or self-care (01) | LOC: WOUND 08:56 | PROVIDERS: ATTEND Internal Medicine | DX: T87.81 Dehiscence of amputation stump (principal); E11.621 Type 2 diabetes mellitus with foot ulcer; I70.235 Atherosclerosis of native arteries of right leg with ulceration of other part of foot; L97.512 Non-pressure chronic ulcer of other part of right foot with fat layer exposed; I70.238 Atherosclerosis of native arteries of right leg with ulceration of other part of lower leg; E11.22 Type 2 diabetes mellitus with diabetic chronic kidney disease; E11.622 Type 2 diabetes mellitus with other skin ulcer; L97.812 Non-pressure chronic ulcer of other part of right lower leg with fat layer exposed; L03.115 Cellulitis of right lower limb; E11.65 Type 2 diabetes mellitus with hyperglycemia; E11.69 Type 2 diabetes mellitus with other specified complication; M86.171 Other acute osteomyelitis, right ankle and foot; G47.30 Sleep apnea, unspecified; E11.52 Type 2 diabetes mellitus with diabetic peripheral angiopathy with gangrene; I96 Gangrene, not elsewhere classified; E78.5 Hyperlipidemia, unspecified; I12.9 Hypertensive chronic kidney disease with stage 1 through stage 4 chronic kidney disease, or unspecified chronic kidney disease; N18.2 Chronic kidney disease, stage 2 (mild); E11.42 Type 2 diabetes mellitus with diabetic polyneuropathy; F10.20 Alcohol dependence, uncomplicated; E66.01 Morbid (severe) obesity due to excess calories; Z68.37 Body mass index [BMI] 37.0-37.9, adult; Z88.0 Allergy status to penicillin; Z79.01 Long term (current) use of anticoagulants; Z79.891 Long term (current) use of opiate analgesic; Z79.899 Other long term (current) drug therapy; Z79.4 Long term (current) use of insulin; Y83.5 Amputation of limb(s) as the cause of abnormal reaction of the patient, or of later complication, without mention of misadventure at the time of the procedure | CPT/HCPCS: 97597 ==

== ENCOUNTER → 2020-10-16 | Outpatient (CLI) | payer MEDICAID | END | disposition home or self-care (01) | LOC: WOUND 09:55 | PROVIDERS: ATTEND Internal Medicine | DX: T87.81 Dehiscence of amputation stump (principal); E11.621 Type 2 diabetes mellitus with foot ulcer; I70.235 Atherosclerosis of native arteries of right leg with ulceration of other part of foot; L97.512 Non-pressure chronic ulcer of other part of right foot with fat layer exposed; E11.622 Type 2 diabetes mellitus with other skin ulcer; I70.238 Atherosclerosis of native arteries of right leg with ulceration of other part of lower leg; L97.812 Non-pressure chronic ulcer of other part of right lower leg with fat layer exposed; L03.115 Cellulitis of right lower limb; E11.65 Type 2 diabetes mellitus with hyperglycemia; E11.69 Type 2 diabetes mellitus with other specified complication; M86.171 Other acute osteomyelitis, right ankle and foot; G47.30 Sleep apnea, unspecified; E11.52 Type 2 diabetes mellitus with diabetic peripheral angiopathy with gangrene; I96 Gangrene, not elsewhere classified; E78.5 Hyperlipidemia, unspecified; E11.22 Type 2 diabetes mellitus with diabetic chronic kidney disease; I12.9 Hypertensive chronic kidney disease with stage 1 through stage 4 chronic kidney disease, or unspecified chronic kidney disease; N18.2 Chronic kidney disease, stage 2 (mild); E11.42 Type 2 diabetes mellitus with diabetic polyneuropathy; F10.20 Alcohol dependence, uncomplicated; E66.01 Morbid (severe) obesity due to excess calories; Z68.37 Body mass index [BMI] 37.0-37.9, adult; Z88.0 Allergy status to penicillin; Z79.01 Long term (current) use of anticoagulants; Z79.891 Long term (current) use of opiate analgesic; Z79.899 Other long term (current) drug therapy; Z79.4 Long term (current) use of insulin; Y83.5 Amputation of limb(s) as the cause of abnormal reaction of the patient, or of later complication, without mention of misadventure at the time of the procedure | CPT/HCPCS: 97597 ==

== ENCOUNTER → 2020-10-23 | Outpatient (CLI) | payer MEDICAID | END | disposition home or self-care (01) | LOC: WOUND 09:24 | PROVIDERS: ATTEND Internal Medicine | DX: T87.81 Dehiscence of amputation stump (principal); E11.621 Type 2 diabetes mellitus with foot ulcer; I70.235 Atherosclerosis of native arteries of right leg with ulceration of other part of foot; L97.512 Non-pressure chronic ulcer of other part of right foot with fat layer exposed; E11.622 Type 2 diabetes mellitus with other skin ulcer; I70.238 Atherosclerosis of native arteries of right leg with ulceration of other part of lower leg; L97.812 Non-pressure chronic ulcer of other part of right lower leg with fat layer exposed; L03.115 Cellulitis of right lower limb; E11.65 Type 2 diabetes mellitus with hyperglycemia; E11.69 Type 2 diabetes mellitus with other specified complication; M86.171 Other acute osteomyelitis, right ankle and foot; G47.30 Sleep apnea, unspecified; E11.52 Type 2 diabetes mellitus with diabetic peripheral angiopathy with gangrene; I96 Gangrene, not elsewhere classified; E78.5 Hyperlipidemia, unspecified; E11.22 Type 2 diabetes mellitus with diabetic chronic kidney disease; I12.9 Hypertensive chronic kidney disease with stage 1 through stage 4 chronic kidney disease, or unspecified chronic kidney disease; N18.2 Chronic kidney disease, stage 2 (mild); E11.42 Type 2 diabetes mellitus with diabetic polyneuropathy; F10.20 Alcohol dependence, uncomplicated; E66.01 Morbid (severe) obesity due to excess calories; Z68.37 Body mass index [BMI] 37.0-37.9, adult; Z88.0 Allergy status to penicillin; Z79.01 Long term (current) use of anticoagulants; Z79.891 Long term (current) use of opiate analgesic; Z79.899 Other long term (current) drug therapy; Z79.4 Long term (current) use of insulin; Y83.5 Amputation of limb(s) as the cause of abnormal reaction of the patient, or of later complication, without mention of misadventure at the time of the procedure | CPT/HCPCS: 99214 ==

== ENCOUNTER 2020-10-30 09:27 | Outpatient (CLI) | payer MEDICAID | END 2020-10-30 23:59 | disposition home or self-care (01) | LOC: WOUND 09:27 | PROVIDERS: ATTEND Internal Medicine | DX: T87.33 Neuroma of amputation stump, right lower extremity (principal); T79.7XXD Traumatic subcutaneous emphysema, subsequent encounter; E11.621 Type 2 diabetes mellitus with foot ulcer; I70.235 Atherosclerosis of native arteries of right leg with ulceration of other part of foot; L97.512 Non-pressure chronic ulcer of other part of right foot with fat layer exposed; L03.115 Cellulitis of right lower limb; E11.69 Type 2 diabetes mellitus with other specified complication; M86.171 Other acute osteomyelitis, right ankle and foot; E11.42 Type 2 diabetes mellitus with diabetic polyneuropathy; E11.52 Type 2 diabetes mellitus with diabetic peripheral angiopathy with gangrene; I96 Gangrene, not elsewhere classified; E78.5 Hyperlipidemia, unspecified; E11.22 Type 2 diabetes mellitus with diabetic chronic kidney disease; I12.9 Hypertensive chronic kidney disease with stage 1 through stage 4 chronic kidney disease, or unspecified chronic kidney disease; N18.2 Chronic kidney disease, stage 2 (mild); E66.01 Morbid (severe) obesity due to excess calories; F10.20 Alcohol dependence, uncomplicated; G47.33 Obstructive sleep apnea (adult) (pediatric); Z68.37 Body mass index [BMI] 37.0-37.9, adult; Z88.0 Allergy status to penicillin; Z79.4 Long term (current) use of insulin; Z79.82 Long term (current) use of aspirin; Z79.891 Long term (current) use of opiate analgesic; Z79.899 Other long term (current) drug therapy; Z79.01 Long term (current) use of anticoagulants; X58.XXXD Exposure to other specified factors, subsequent encounter; Y83.5 Amputation of limb(s) as the cause of abnormal reaction of the patient, or of later complication, without mention of misadventure at the time of the procedure | CPT/HCPCS: 97597 ==

== ENCOUNTER → 2020-11-06 | Outpatient (CLI) | payer MEDICAID | END | disposition home or self-care (01) | LOC: WOUND 09:01 | PROVIDERS: ATTEND Internal Medicine | DX: T87.33 Neuroma of amputation stump, right lower extremity (principal); E11.621 Type 2 diabetes mellitus with foot ulcer; I70.235 Atherosclerosis of native arteries of right leg with ulceration of other part of foot; L97.512 Non-pressure chronic ulcer of other part of right foot with fat layer exposed; L03.115 Cellulitis of right lower limb; E11.69 Type 2 diabetes mellitus with other specified complication; M86.8X7 Other osteomyelitis, ankle and foot; E11.42 Type 2 diabetes mellitus with diabetic polyneuropathy; E11.52 Type 2 diabetes mellitus with diabetic peripheral angiopathy with gangrene; I96 Gangrene, not elsewhere classified; E11.22 Type 2 diabetes mellitus with diabetic chronic kidney disease; N18.2 Chronic kidney disease, stage 2 (mild); I12.9 Hypertensive chronic kidney disease with stage 1 through stage 4 chronic kidney disease, or unspecified chronic kidney disease; T79.7XXD Traumatic subcutaneous emphysema, subsequent encounter; E78.5 Hyperlipidemia, unspecified; M86.171 Other acute osteomyelitis, right ankle and foot; E66.01 Morbid (severe) obesity due to excess calories; G47.33 Obstructive sleep apnea (adult) (pediatric); Z68.37 Body mass index [BMI] 37.0-37.9, adult; Z79.4 Long term (current) use of insulin; Z79.82 Long term (current) use of aspirin; X58.XXXD Exposure to other specified factors, subsequent encounter; Y83.5 Amputation of limb(s) as the cause of abnormal reaction of the patient, or of later complication, without mention of misadventure at the time of the procedure | CPT/HCPCS: 97597 ==

== ENCOUNTER → 2020-11-13 | Outpatient (CLI) | payer MEDICAID | END | disposition home or self-care (01) | LOC: WOUND 09:05 | PROVIDERS: ATTEND Internal Medicine | DX: T87.33 Neuroma of amputation stump, right lower extremity (principal); T79.7XXD Traumatic subcutaneous emphysema, subsequent encounter; E11.621 Type 2 diabetes mellitus with foot ulcer; I70.235 Atherosclerosis of native arteries of right leg with ulceration of other part of foot; L97.512 Non-pressure chronic ulcer of other part of right foot with fat layer exposed; L03.115 Cellulitis of right lower limb; E11.69 Type 2 diabetes mellitus with other specified complication; M86.171 Other acute osteomyelitis, right ankle and foot; E11.42 Type 2 diabetes mellitus with diabetic polyneuropathy; E11.52 Type 2 diabetes mellitus with diabetic peripheral angiopathy with gangrene; I96 Gangrene, not elsewhere classified; E78.5 Hyperlipidemia, unspecified; E11.22 Type 2 diabetes mellitus with diabetic chronic kidney disease; I12.9 Hypertensive chronic kidney disease with stage 1 through stage 4 chronic kidney disease, or unspecified chronic kidney disease; N18.2 Chronic kidney disease, stage 2 (mild); F10.21 Alcohol dependence, in remission; G47.33 Obstructive sleep apnea (adult) (pediatric); E66.01 Morbid (severe) obesity due to excess calories; Z68.37 Body mass index [BMI] 37.0-37.9, adult; Z88.0 Allergy status to penicillin; Z79.4 Long term (current) use of insulin; Z79.82 Long term (current) use of aspirin; Z79.891 Long term (current) use of opiate analgesic; Z79.899 Other long term (current) drug therapy; Z79.01 Long term (current) use of anticoagulants; X58.XXXD Exposure to other specified factors, subsequent encounter; Y83.5 Amputation of limb(s) as the cause of abnormal reaction of the patient, or of later complication, without mention of misadventure at the time of the procedure | CPT/HCPCS: 97597 ==

== ENCOUNTER 2020-11-20 11:03 | Outpatient (CLI) | payer MEDICAID | END 2020-11-20 23:59 | disposition home or self-care (01) | LOC: WOUND 11:03 | PROVIDERS: ATTEND Internal Medicine | DX: T87.33 Neuroma of amputation stump, right lower extremity (principal); T79.7XXD Traumatic subcutaneous emphysema, subsequent encounter; I70.235 Atherosclerosis of native arteries of right leg with ulceration of other part of foot; E11.621 Type 2 diabetes mellitus with foot ulcer; L97.512 Non-pressure chronic ulcer of other part of right foot with fat layer exposed; L03.115 Cellulitis of right lower limb; E11.69 Type 2 diabetes mellitus with other specified complication; M86.171 Other acute osteomyelitis, right ankle and foot; E11.42 Type 2 diabetes mellitus with diabetic polyneuropathy; E11.52 Type 2 diabetes mellitus with diabetic peripheral angiopathy with gangrene; I96 Gangrene, not elsewhere classified; E78.5 Hyperlipidemia, unspecified; E11.22 Type 2 diabetes mellitus with diabetic chronic kidney disease; I12.9 Hypertensive chronic kidney disease with stage 1 through stage 4 chronic kidney disease, or unspecified chronic kidney disease; N18.2 Chronic kidney disease, stage 2 (mild); F10.21 Alcohol dependence, in remission; G47.33 Obstructive sleep apnea (adult) (pediatric); E66.01 Morbid (severe) obesity due to excess calories; Z68.37 Body mass index [BMI] 37.0-37.9, adult; Z88.0 Allergy status to penicillin; Z79.4 Long term (current) use of insulin; Z79.82 Long term (current) use of aspirin; Z79.891 Long term (current) use of opiate analgesic; Z79.899 Other long term (current) drug therapy; Z79.01 Long term (current) use of anticoagulants; X58.XXXD Exposure to other specified factors, subsequent encounter; Y83.5 Amputation of limb(s) as the cause of abnormal reaction of the patient, or of later complication, without mention of misadventure at the time of the procedure | CPT/HCPCS: 11042; 87070; 87077; 87186; 87205 ==

== ENCOUNTER 2020-11-23 10:33 | Inpatient (IN) | payer MEDICAID ==
[~2020-11-23] VITALS: Ht 177.8 cm; Wt 126.3 kg
--- NOTE | 2020-11-23 10:58 | NUR ---
OB/GYN NURSE: PT AMBULATORY TO ROOM FROM LOBBY AT THIS TIME
[2020-11-23] MEDS ORDERED: SODIUM CHLORIDE FLUSH 10ML SYR IVF ONE (11:30)
[2020-11-23] MEDS ORDERED: SODIUM CHLORIDE 0.9% 1,000ML IVBOLUS ONE (11:30)
[2020-11-23] MEDS ORDERED: ACETAMINOPHEN 500 MG TABLET PO ONE (11:30)
[2020-11-23] MEDS ORDERED: CLINDAMYCIN PMX 900MG/50ML 50 ML IV ONE (11:30)
[2020-11-23 12:02] LABS: BASOPHILS % (AUTO) 0 % (0-1); EOSINOPHILS % (AUTO) 0 % (1-7); LYMPHOCYTES % (AUTO) 12 % (22-44); MEAN CORPUSCULAR HEMOGLOBIN 29.7 pg (27.5-34.5); MEAN CORPUSCULAR HGB CONC 33.6 g/dL (33.2-36.2); MONOCYTES % (AUTO) 10 % (2-9); NEUTROPHILS % (AUTO) 78 % (42-75); PLATELET COUNT 278 x10^3/uL (130-400); RED BLOOD COUNT 3.63 x10^6/uL (4.38-5.82); RED CELL DISTRIBUTION WIDTH 16.1 % (9.4-14.8)
[2020-11-23 12:03] LABS: MD NO
[2020-11-23 12:05] LABS: HCT (SEDRATE) 32.1 % (39.2-51.8)
[2020-11-23 12:19] LABS: ALBUMIN 2.9 g/dL (3.4-5.0); ANION GAP 8 mmol/L (5-15); CALCIUM 8.7 mg/dL (8.5-10.1); CHLORIDE 97 mmol/L (98-107)
[2020-11-23 12:28] LABS: ALANINE AMINOTRANSFERASE 37 U/L (12-78); ALKALINE PHOSPHATASE 129 U/L (45-117); BILIRUBIN,TOTAL 0.9 mg/dL (0.2-1.0); CREATININE 1.72 mg/dL (0.7-1.3); TOTAL PROTEIN 7.7 g/dL (6.4-8.2)
[2020-11-23] MEDS ORDERED: CLINDAMYCIN PMX 900MG/50ML 50 ML ONE (12:30)
[2020-11-23] MEDS ORDERED: ACETAMINOPHEN 500 MG TABLET ONE (12:30)
--- NOTE | 2020-11-23 12:50 | NUR ---
FOREIGN RN: MEDICATED STARTED, WARM BLANKET GIVEN, PT VERBALIZED NO OTHER NEEDS AT THIS TIME.
--- NOTE | 2020-11-23 12:55 | NUR ---
FOREIGN RN: PT TO MRI VIA [facility]EN
[2020-11-23] MEDS ORDERED: VANCOMYCIN PER PHARMACY MC ONE (13:00)
[2020-11-23] MEDS ORDERED: VANCOMYCIN 2,500 MG in SODIUM CHLORIDE 0.9% 500 ML IV ONE (13:00)
--- NOTE | 2020-11-23 13:20 | NUR ---
FOREIGN RN: REPORT TO LEYLA VILLATORO, PLAN OF CARE DISCUSSED
[2020-11-23] MEDS ORDERED: GADOTERATE 10 MMOL/20ML SYR ONE (13:45)
[2020-11-23] MEDS ORDERED: PHARMACY MAY ADJ FOR RENAL FX MC PRN (15:00)
[2020-11-23] MEDS ORDERED: VANCOMYCIN PER PHARMACY MC PRN (15:00)
[2020-11-23] MEDS ORDERED: POLYETHYLENE GLYCOL 17 GM PACKET PO PRN (15:00)
[2020-11-23] MEDS ORDERED: LACTATED RINGERS 1,000 ML IV SCH (15:00)
[2020-11-23] MEDS ORDERED: ONDANSETRON 2MG/ML, 2ML IVPush PRN (15:00)
[2020-11-23] MEDS ORDERED: ONDANSETRON ODT 4 MG PO PRN (15:00)
[2020-11-23] MEDS ORDERED: ACETAMINOPHEN 325 MG TABLET PO PRN (15:00)
[2020-11-23] MEDS ORDERED: PHARMACOKINETIC MONITORING MC PRN (16:00)
[2020-11-23] MEDS: INSULIN LISPRO 100 UNITS/ML, PEN SQ-INSULIN SCH ×2 (16:00→22:18)
[2020-11-23] MEDS: SENNA/DOCUSATE TABLET PO SCH (16:04)
[2020-11-23 16:07] VITALS: BP 102/67
[2020-11-23] MEDS: MEROPENEM 1 GM in SODIUM CHLORIDE 0.9% 100 ML IV SCH (17:31)
[2020-11-23 20:00] VITALS: BP 119/77
[2020-11-23] MEDS: ATORVASTATIN 40 MG TABLET PO SCH (20:41)
[2020-11-23] MEDS ORDERED: CARVEDILOL 25 MG TABLET PO SCH (21:00)
[2020-11-23] MEDS: INSULIN GLARGINE 100 UNITS/ML, PEN SQ-INSULIN SCH (22:19)
[2020-11-24 02:58] VITALS: BP 125/78
[2020-11-24] MEDS: ASPIRIN 81 MG TABLET EC PO SCH (05:19)
[2020-11-24] MEDS: MEROPENEM 1 GM in SODIUM CHLORIDE 0.9% 100 ML IV SCH ×3 (05:19→21:00)
[2020-11-24] MEDS ORDERED: BUPIVACAINE/PF 0.5% ONE (06:02)
[2020-11-24] MEDS ORDERED: LIDOCAINE 1%, 20ML ONE (06:03)
[2020-11-24 06:09] LABS: BASOPHILS % (AUTO) 1 % (0-1); EOSINOPHILS % (AUTO) 2 % (1-7); LYMPHOCYTES % (AUTO) 21 % (22-44); MEAN CORPUSCULAR HEMOGLOBIN 29.8 pg (27.5-34.5); MEAN CORPUSCULAR HGB CONC 33.8 g/dL (33.2-36.2); MEAN PLATELET VOLUME 7.2 fL (7.4-10.4); MONOCYTES % (AUTO) 13 % (2-9); NEUTROPHILS % (AUTO) 64 % (42-75); PLATELET COUNT 269 x10^3/uL (130-400); RED BLOOD COUNT 3.38 x10^6/uL (4.38-5.82); RED CELL DISTRIBUTION WIDTH 16.2 % (9.4-14.8)
[2020-11-24] MEDS ORDERED: FENTANYL PF 250 MCG/5ML ONE (06:17)
[2020-11-24] MEDS ORDERED: MIDAZOLAM 1 MG/ML, 2ML ONE (06:17)
[2020-11-24 06:19] LABS: ALANINE AMINOTRANSFERASE 36 U/L (12-78); ALBUMIN 2.7 g/dL (3.4-5.0); ANION GAP 7 mmol/L (5-15); CALCIUM 8.6 mg/dL (8.5-10.1); CHLORIDE 102 mmol/L (98-107)
[2020-11-24 06:21] LABS: MD NO
[2020-11-24] MEDS ORDERED: CEFAZOLIN 1,000 MG ONE (06:21)
[2020-11-24] MEDS ORDERED: PROPOFOL 10 MG/ML, 20ML ONE (06:21)
[2020-11-24] MEDS ORDERED: CHLORHEXIDINE 15 ML UDC ONE (06:23)
[2020-11-24 06:24] LABS: ALKALINE PHOSPHATASE 113 U/L (45-117); BILIRUBIN,TOTAL 0.5 mg/dL (0.2-1.0); VANCOMYCIN,RANDOM 11.2 mcg/mL
[2020-11-24] MEDS ORDERED: CHLORHEXIDINE 15 ML UDC PO ONE (06:30)
[2020-11-24] MEDS ORDERED: OXYcodone 5 MG/5 ML ORAL.SOL UDC PO PRN (07:00)
[2020-11-24] MEDS ORDERED: hydrALAzine 20 MG/ML, 1ML IV PRN (07:00)
[2020-11-24] MEDS ORDERED: ONDANSETRON 2MG/ML, 2ML IVPush PRN (07:00)
[2020-11-24] MEDS ORDERED: ACETAMINOPHEN 325 MG TABLET PO PRN (07:00)
[2020-11-24] MEDS ORDERED: LABETALOL 5MG/ML, 20ML IV PRN (07:00)
[2020-11-24] MEDS ORDERED: FENTANYL PF 100 MCG/2ML IV PRN (07:00)
[2020-11-24] MEDS ORDERED: morphine SULFATE 10 MG/ML, 1ML IVPush PRN (07:00)
[2020-11-24] MEDS ORDERED: HYDROmorphone 1 MG/ML, 1ML INJ IVPush PRN (07:00)
[2020-11-24] MEDS ORDERED: MEPERIDINE/PF 25MG/0.5ML IVPush PRN (07:00)
[2020-11-24] MEDS ORDERED: VANCOMYCIN 1,000 MG ONE (07:11)
[2020-11-24 07:54] VITALS: BP 93/65
[2020-11-24] MEDS ORDERED: AMLODIPINE 10 MG TAB PO SCH (09:00)
[2020-11-24] MEDS: INSULIN LISPRO 100 UNITS/ML, PEN SQ-INSULIN SCH ×4 (09:14→20:58)
[2020-11-24] MEDS: SENNA/DOCUSATE TABLET PO SCH (09:14)
[2020-11-24] MEDS: VANCOMYCIN 2,200 MG in SODIUM CHLORIDE 0.9% 500 ML IV SCH ×2 (11:15→23:27)
[2020-11-24 12:49] VITALS: BP 118/77
[2020-11-24 19:57] VITALS: BP 144/85
[2020-11-24] MEDS: ATORVASTATIN 40 MG TABLET PO SCH (20:57)
[2020-11-24] MEDS: INSULIN GLARGINE 100 UNITS/ML, PEN SQ-INSULIN SCH (20:59)
[2020-11-25 00:21] VITALS: BP 138/85
[2020-11-25] MEDS: MEROPENEM 1 GM in SODIUM CHLORIDE 0.9% 100 ML IV SCH ×3 (05:18→21:23)
[2020-11-25] MEDS: ASPIRIN 81 MG TABLET EC PO SCH (05:18)
[2020-11-25 06:08] LABS: BASOPHILS % (AUTO) 1 % (0-1); EOSINOPHILS % (AUTO) 1 % (1-7); LYMPHOCYTES % (AUTO) 28 % (22-44); MEAN CORPUSCULAR HEMOGLOBIN 29.5 pg (27.5-34.5); MEAN CORPUSCULAR HGB CONC 33.6 g/dL (33.2-36.2); MEAN PLATELET VOLUME 7.2 fL (7.4-10.4); MONOCYTES % (AUTO) 14 % (2-9); NEUTROPHILS % (AUTO) 56 % (42-75); PLATELET COUNT 262 x10^3/uL (130-400); RED BLOOD COUNT 3.34 x10^6/uL (4.38-5.82); RED CELL DISTRIBUTION WIDTH 16.1 % (9.4-14.8)
[2020-11-25 06:09] LABS: MD NO
[2020-11-25 06:12] LABS: ANION GAP 6 mmol/L (5-15); CALCIUM 8.5 mg/dL (8.5-10.1); CHLORIDE 106 mmol/L (98-107)
[2020-11-25 06:13] LABS: CREATININE 1.06 mg/dL (0.7-1.3)
[2020-11-25] MEDS: INSULIN LISPRO 100 UNITS/ML, PEN SQ-INSULIN SCH ×4 (07:00→21:27)
[2020-11-25 07:02] VITALS: BP 144/82
[2020-11-25] MEDS: SENNA/DOCUSATE TABLET PO SCH (08:32)
[2020-11-25] MEDS: VANCOMYCIN 2,200 MG in SODIUM CHLORIDE 0.9% 500 ML IV SCH ×2 (11:16→23:30)
[2020-11-25 14:14] VITALS: BP 135/85
[2020-11-25] MEDS: CARVEDILOL 25 MG TABLET PO SCH (18:09)
[2020-11-25 19:23] VITALS: BP 103/83
[2020-11-25] MEDS: ATORVASTATIN 40 MG TABLET PO SCH (21:25)
[2020-11-25] MEDS: INSULIN GLARGINE 100 UNITS/ML, PEN SQ-INSULIN SCH (21:26)
[2020-11-26 02:23] VITALS: BP 144/85
[2020-11-26 05:27] VITALS: BP 129/84
[2020-11-26] MEDS: MEROPENEM 1 GM in SODIUM CHLORIDE 0.9% 100 ML IV SCH ×2 (05:27→19:56)
[2020-11-26] MEDS: CARVEDILOL 25 MG TABLET PO SCH ×2 (05:28→17:47)
[2020-11-26] MEDS: ASPIRIN 81 MG TABLET EC PO SCH (05:28)
[2020-11-26 05:52] LABS: BASOPHILS % (AUTO) 1 % (0-1); EOSINOPHILS % (AUTO) 3 % (1-7); LYMPHOCYTES % (AUTO) 26 % (22-44); MEAN CORPUSCULAR HEMOGLOBIN 29.4 pg (27.5-34.5); MEAN CORPUSCULAR HGB CONC 33.8 g/dL (33.2-36.2); MONOCYTES % (AUTO) 9 % (2-9); NEUTROPHILS % (AUTO) 62 % (42-75); PLATELET COUNT 298 x10^3/uL (130-400); RED BLOOD COUNT 3.23 x10^6/uL (4.38-5.82); RED CELL DISTRIBUTION WIDTH 16.5 % (9.4-14.8)
[2020-11-26 06:03] LABS: MD NO
[2020-11-26 06:11] LABS: CHLORIDE 105 mmol/L (98-107)
[2020-11-26 06:29] LABS: ALANINE AMINOTRANSFERASE 38 U/L (12-78); ALBUMIN 2.6 g/dL (3.4-5.0); ALKALINE PHOSPHATASE 134 U/L (45-117); ANION GAP 6 mmol/L (5-15); BILIRUBIN,TOTAL 0.3 mg/dL (0.2-1.0); CALCIUM 8.5 mg/dL (8.5-10.1); CREATININE 1.06 mg/dL (0.7-1.3)
[2020-11-26 07:14] VITALS: BP 128/85
[2020-11-26] MEDS: INSULIN LISPRO 100 UNITS/ML, PEN SQ-INSULIN SCH ×4 (07:45→20:34)
[2020-11-26] MEDS: SENNA/DOCUSATE TABLET PO SCH (07:46)
[2020-11-26] MEDS: metFORMIN 500 MG TABLET PO SCH ×2 (07:46→20:33)
[2020-11-26] MEDS: VANCOMYCIN 2,200 MG in SODIUM CHLORIDE 0.9% 500 ML IV SCH ×2 (11:24→23:20)
[2020-11-26 13:16] VITALS: BP 136/89
[2020-11-26] MEDS: ATORVASTATIN 40 MG TABLET PO SCH (20:34)
[2020-11-26] MEDS: INSULIN GLARGINE 100 UNITS/ML, PEN SQ-INSULIN SCH (20:35)
[2020-11-26 20:50] VITALS: BP 137/87
[2020-11-27 01:39] VITALS: BP 149/83
[2020-11-27] MEDS: MEROPENEM 1 GM in SODIUM CHLORIDE 0.9% 100 ML IV SCH ×3 (03:59→20:03)
[2020-11-27 05:10] VITALS: BP 151/94
[2020-11-27] MEDS: CARVEDILOL 25 MG TABLET PO SCH ×2 (05:13→16:53)
[2020-11-27] MEDS: ASPIRIN 81 MG TABLET EC PO SCH (05:13)
[2020-11-27 06:19] LABS: BASOPHILS % (AUTO) 1 % (0-1); EOSINOPHILS % (AUTO) 3 % (1-7); LYMPHOCYTES % (AUTO) 25 % (22-44); MEAN CORPUSCULAR HEMOGLOBIN 29.1 pg (27.5-34.5); MEAN CORPUSCULAR HGB CONC 33.1 g/dL (33.2-36.2); MONOCYTES % (AUTO) 8 % (2-9); NEUTROPHILS % (AUTO) 63 % (42-75); PLATELET COUNT 316 x10^3/uL (130-400); RED BLOOD COUNT 3.37 x10^6/uL (4.38-5.82); RED CELL DISTRIBUTION WIDTH 16.4 % (9.4-14.8)
[2020-11-27 06:21] LABS: MD NO
[2020-11-27 06:35] LABS: ALANINE AMINOTRANSFERASE 36 U/L (12-78); ALBUMIN 2.5 g/dL (3.4-5.0); ANION GAP 5 mmol/L (5-15); CALCIUM 8.7 mg/dL (8.5-10.1); CHLORIDE 106 mmol/L (98-107); CREATININE 0.94 mg/dL (0.7-1.3)
[2020-11-27 06:41] LABS: ALKALINE PHOSPHATASE 126 U/L (45-117); BILIRUBIN,TOTAL 0.4 mg/dL (0.2-1.0); TOTAL PROTEIN 6.8 g/dL (6.4-8.2)
[2020-11-27] MEDS: INSULIN LISPRO 100 UNITS/ML, PEN SQ-INSULIN SCH ×4 (07:00→20:16)
[2020-11-27 07:31] VITALS: BP 145/94
[2020-11-27] MEDS: ZINC SULFATE 220 MG CAPSULE PO SCH (07:58)
[2020-11-27] MEDS: MULTIVITAMIN 1 TABLET PO SCH (07:58)
[2020-11-27] MEDS: metFORMIN 500 MG TABLET PO SCH ×2 (07:59→20:14)
[2020-11-27] MEDS: SENNA/DOCUSATE TABLET PO SCH (07:59)
[2020-11-27 10:19] LABS: HCT (SEDRATE) 29.2 % (39.2-51.8)
[2020-11-27] MEDS: VANCOMYCIN 2,200 MG in SODIUM CHLORIDE 0.9% 500 ML IV SCH (10:56)
[2020-11-27 14:30] VITALS: BP 135/86
[2020-11-27 19:16] VITALS: BP 135/84
[2020-11-27] MEDS: ATORVASTATIN 40 MG TABLET PO SCH (20:14)
[2020-11-27] MEDS: INSULIN GLARGINE 100 UNITS/ML, PEN SQ-INSULIN SCH (20:15)
[2020-11-28 00:23] VITALS: BP 155/86
[2020-11-28] MEDS: MEROPENEM 1 GM in SODIUM CHLORIDE 0.9% 100 ML IV SCH (04:04)
[2020-11-28 05:14] VITALS: BP 112/71
[2020-11-28] MEDS: ASPIRIN 81 MG TABLET EC PO SCH (05:14)
[2020-11-28] MEDS: CARVEDILOL 25 MG TABLET PO SCH (05:14)
[2020-11-28 05:51] LABS: ANION GAP 5 mmol/L (5-15); CALCIUM 8.7 mg/dL (8.5-10.1); CHLORIDE 109 mmol/L (98-107)
[2020-11-28] MEDS: INSULIN LISPRO 100 UNITS/ML, PEN SQ-INSULIN SCH ×3 (07:00→16:21)
[2020-11-28 07:12] LABS: BASOPHILS % (AUTO) 1 % (0-1); EOSINOPHILS % (AUTO) 4 % (1-7); LYMPHOCYTES % (AUTO) 25 % (22-44); MEAN CORPUSCULAR HEMOGLOBIN 29.7 pg (27.5-34.5); MEAN CORPUSCULAR HGB CONC 33.6 g/dL (33.2-36.2); MONOCYTES % (AUTO) 6 % (2-9); NEUTROPHILS % (AUTO) 65 % (42-75); PLATELET COUNT 390 x10^3/uL (130-400); RED BLOOD COUNT 3.46 x10^6/uL (4.38-5.82); RED CELL DISTRIBUTION WIDTH 16.8 % (9.4-14.8)
[2020-11-28 07:14] LABS: MD NO
[2020-11-28 07:40] VITALS: BP 144/86
[2020-11-28] MEDS: SENNA/DOCUSATE TABLET PO SCH (07:42)
[2020-11-28] MEDS: MULTIVITAMIN 1 TABLET PO SCH (07:43)
[2020-11-28] MEDS: ZINC SULFATE 220 MG CAPSULE PO SCH (07:43)
[2020-11-28] MEDS: metFORMIN 500 MG TABLET PO SCH (07:43)
[2020-11-28] MEDS ORDERED: VANCOMYCIN 2,200 MG in SODIUM CHLORIDE 0.9% 500 ML IV SCH (08:00)
[2020-11-28] MEDS ORDERED: CEFTRIAXONE PMX 2GM/50ML 50 ML IVPB SCH (09:30)
[2020-11-28] MEDS ORDERED: LISINOPRIL 40 MG TABLET PO SCH (13:00)
[2020-11-28 13:47] VITALS: BP 155/78
[2020-11-28] MEDS ORDERED: CEFT1FRO2 IV (14:58)
== END 2020-11-28 14:50 | disposition home or self-care (01) | DRG 853 ==
LOC: ED 12:29 → EDIP 13:00 → 3N 14:14 → DCLOUNGE 11-28 14:43
PROVIDERS: ADMIT Family Medicine; ATTEND Hospitalist
PROC: 0Y6M0ZB Detachment at Right Foot, Partial 2nd Ray, Open Approach (ICD-10-PCS; 2020-11-24)
PROC: 0Y6M0ZC Detachment at Right Foot, Partial 3rd Ray, Open Approach (ICD-10-PCS; 2020-11-24)
PROC: 0Y6M0ZD Detachment at Right Foot, Partial 4th Ray, Open Approach (ICD-10-PCS; 2020-11-24)
PROC: 0Y6M0ZF Detachment at Right Foot, Partial 5th Ray, Open Approach (ICD-10-PCS; 2020-11-24)
PROC: 0QBP0ZX Excision of Left Metatarsal, Open Approach, Diagnostic (ICD-10-PCS; 2020-11-24)
PROC: 0Y6M0Z9 Detachment at Right Foot, Partial 1st Ray, Open Approach (ICD-10-PCS; principal; 2020-11-24 07:00)
PROC: 05HY33Z Insertion of Infusion Device into Upper Vein, Percutaneous Approach (ICD-10-PCS; 2020-11-28)
PROC: B54NZZA Ultrasonography of Left Upper Extremity Veins, Guidance (ICD-10-PCS; 2020-11-28)
PROC: B51N1ZA Fluoroscopy of Left Upper Extremity Veins using Low Osmolar Contrast, Guidance (ICD-10-PCS; 2020-11-28)
DX: A41.89 Other specified sepsis (principal); N17.0 Acute kidney failure with tubular necrosis; T81.30XA Disruption of wound, unspecified, initial encounter; L03.115 Cellulitis of right lower limb; E87.1 Hypo-osmolality and hyponatremia; M86.8X7 Other osteomyelitis, ankle and foot; Z68.41 Body mass index [BMI] 40.0-44.9, adult; E11.621 Type 2 diabetes mellitus with foot ulcer; L97.519 Non-pressure chronic ulcer of other part of right foot with unspecified severity; Z20.822 Contact with and (suspected) exposure to COVID-19; E11.628 Type 2 diabetes mellitus with other skin complications; D64.9 Anemia, unspecified; E11.69 Type 2 diabetes mellitus with other specified complication; N18.2 Chronic kidney disease, stage 2 (mild); I12.9 Hypertensive chronic kidney disease with stage 1 through stage 4 chronic kidney disease, or unspecified chronic kidney disease; B95.4 Other streptococcus as the cause of diseases classified elsewhere; E11.22 Type 2 diabetes mellitus with diabetic chronic kidney disease; E11.42 Type 2 diabetes mellitus with diabetic polyneuropathy; E11.51 Type 2 diabetes mellitus with diabetic peripheral angiopathy without gangrene; F12.90 Cannabis use, unspecified, uncomplicated; G47.33 Obstructive sleep apnea (adult) (pediatric); E78.5 Hyperlipidemia, unspecified; E66.01 Morbid (severe) obesity due to excess calories; Z88.0 Allergy status to penicillin; Z82.3 Family history of stroke; Z83.3 Family history of diabetes mellitus; Z82.49 Family history of ischemic heart disease and other diseases of the circulatory system; Z79.899 Other long term (current) drug therapy; Y83.5 Amputation of limb(s) as the cause of abnormal reaction of the patient, or of later complication, without mention of misadventure at the time of the procedure; Y92.89 Other specified places as the place of occurrence of the external cause
CPT/HCPCS: 36415; 73630; 77001; 84145; 99285; J3490; S0020; 36573; 80048; 80053; 80202; 82962; 83036; 83605; 85025; 85651; 86140; 87040; 87070; 87075; 87077; 87102; 87116; 87205; 87206; 87635; 88304; 88311; G0378; J0690; J0696; J2185; J2250; J2704; J3010; J3370; A9575; C1751; C1769; J1815; J7030; J7040; J7120

== ENCOUNTER → 2020-12-04 | Outpatient (CLI) | payer MEDICAID ==
[~2020-12-04] MED LIST changes: +CEFT1FRO2 IV
== END | disposition home or self-care (01) ==
LOC: WOUND 08:26
PROVIDERS: ATTEND Internal Medicine Cardiovascular Disease
DX: T87.33 Neuroma of amputation stump, right lower extremity (principal); T79.7XXD Traumatic subcutaneous emphysema, subsequent encounter; I70.235 Atherosclerosis of native arteries of right leg with ulceration of other part of foot; E11.621 Type 2 diabetes mellitus with foot ulcer; L97.512 Non-pressure chronic ulcer of other part of right foot with fat layer exposed; L03.115 Cellulitis of right lower limb; E11.69 Type 2 diabetes mellitus with other specified complication; M86.171 Other acute osteomyelitis, right ankle and foot; E11.42 Type 2 diabetes mellitus with diabetic polyneuropathy; E11.52 Type 2 diabetes mellitus with diabetic peripheral angiopathy with gangrene; I96 Gangrene, not elsewhere classified; E78.5 Hyperlipidemia, unspecified; E11.22 Type 2 diabetes mellitus with diabetic chronic kidney disease; I12.9 Hypertensive chronic kidney disease with stage 1 through stage 4 chronic kidney disease, or unspecified chronic kidney disease; N18.2 Chronic kidney disease, stage 2 (mild); N17.0 Acute kidney failure with tubular necrosis; F10.21 Alcohol dependence, in remission; F12.90 Cannabis use, unspecified, uncomplicated; G47.33 Obstructive sleep apnea (adult) (pediatric); E66.01 Morbid (severe) obesity due to excess calories; Z68.37 Body mass index [BMI] 37.0-37.9, adult; Z88.0 Allergy status to penicillin; Z79.4 Long term (current) use of insulin; Z79.82 Long term (current) use of aspirin; Z79.891 Long term (current) use of opiate analgesic; Z79.899 Other long term (current) drug therapy; Z79.01 Long term (current) use of anticoagulants; X58.XXXD Exposure to other specified factors, subsequent encounter; Y83.5 Amputation of limb(s) as the cause of abnormal reaction of the patient, or of later complication, without mention of misadventure at the time of the procedure
CPT/HCPCS: 99214

== ENCOUNTER → 2020-12-11 | Outpatient (CLI) | payer MEDICAID | END | disposition home or self-care (01) | LOC: WOUND 09:22 | PROVIDERS: ATTEND Internal Medicine | DX: T87.33 Neuroma of amputation stump, right lower extremity (principal); T79.7XXD Traumatic subcutaneous emphysema, subsequent encounter; I70.235 Atherosclerosis of native arteries of right leg with ulceration of other part of foot; E11.621 Type 2 diabetes mellitus with foot ulcer; L97.512 Non-pressure chronic ulcer of other part of right foot with fat layer exposed; L03.115 Cellulitis of right lower limb; E11.69 Type 2 diabetes mellitus with other specified complication; M86.171 Other acute osteomyelitis, right ankle and foot; E11.42 Type 2 diabetes mellitus with diabetic polyneuropathy; E11.52 Type 2 diabetes mellitus with diabetic peripheral angiopathy with gangrene; I96 Gangrene, not elsewhere classified; E78.5 Hyperlipidemia, unspecified; E11.22 Type 2 diabetes mellitus with diabetic chronic kidney disease; I12.9 Hypertensive chronic kidney disease with stage 1 through stage 4 chronic kidney disease, or unspecified chronic kidney disease; N18.2 Chronic kidney disease, stage 2 (mild); N17.0 Acute kidney failure with tubular necrosis; F10.21 Alcohol dependence, in remission; F12.90 Cannabis use, unspecified, uncomplicated; G47.33 Obstructive sleep apnea (adult) (pediatric); E66.01 Morbid (severe) obesity due to excess calories; Z68.37 Body mass index [BMI] 37.0-37.9, adult; Z88.0 Allergy status to penicillin; Z79.4 Long term (current) use of insulin; Z79.82 Long term (current) use of aspirin; Z79.891 Long term (current) use of opiate analgesic; Z79.01 Long term (current) use of anticoagulants; X58.XXXD Exposure to other specified factors, subsequent encounter; Y83.5 Amputation of limb(s) as the cause of abnormal reaction of the patient, or of later complication, without mention of misadventure at the time of the procedure | CPT/HCPCS: 11042 ==

== ENCOUNTER → 2020-12-12 | Outpatient (CLI) | payer MEDICAID | END | disposition home or self-care (01) | LOC: RAD 13:08 | PROVIDERS: ATTEND Internal Medicine | DX: E11.621 Type 2 diabetes mellitus with foot ulcer (principal); L97.515 Non-pressure chronic ulcer of other part of right foot with muscle involvement without evidence of necrosis | CPT/HCPCS: 71046 ==

== ENCOUNTER 2020-12-18 09:45 | Outpatient (CLI) | payer MEDICAID | END 2020-12-18 23:59 | disposition home or self-care (01) | LOC: WOUND 09:45 | PROVIDERS: ATTEND Internal Medicine | DX: T87.33 Neuroma of amputation stump, right lower extremity (principal); T81.32XD Disruption of internal operation (surgical) wound, not elsewhere classified, subsequent encounter; T79.7XXD Traumatic subcutaneous emphysema, subsequent encounter; I70.235 Atherosclerosis of native arteries of right leg with ulceration of other part of foot; E11.621 Type 2 diabetes mellitus with foot ulcer; L97.515 Non-pressure chronic ulcer of other part of right foot with muscle involvement without evidence of necrosis; L03.115 Cellulitis of right lower limb; E11.69 Type 2 diabetes mellitus with other specified complication; M86.171 Other acute osteomyelitis, right ankle and foot; E11.42 Type 2 diabetes mellitus with diabetic polyneuropathy; E11.52 Type 2 diabetes mellitus with diabetic peripheral angiopathy with gangrene; I96 Gangrene, not elsewhere classified; E78.5 Hyperlipidemia, unspecified; E11.22 Type 2 diabetes mellitus with diabetic chronic kidney disease; I12.9 Hypertensive chronic kidney disease with stage 1 through stage 4 chronic kidney disease, or unspecified chronic kidney disease; N18.2 Chronic kidney disease, stage 2 (mild); N17.0 Acute kidney failure with tubular necrosis; F10.21 Alcohol dependence, in remission; F12.90 Cannabis use, unspecified, uncomplicated; G47.33 Obstructive sleep apnea (adult) (pediatric); E66.01 Morbid (severe) obesity due to excess calories; Z68.37 Body mass index [BMI] 37.0-37.9, adult; Z88.0 Allergy status to penicillin; Z79.4 Long term (current) use of insulin; Z79.82 Long term (current) use of aspirin; Z79.891 Long term (current) use of opiate analgesic; Z79.01 Long term (current) use of anticoagulants; Z79.899 Other long term (current) drug therapy; Z20.822 Contact with and (suspected) exposure to COVID-19; X58.XXXD Exposure to other specified factors, subsequent encounter; Y83.5 Amputation of limb(s) as the cause of abnormal reaction of the patient, or of later complication, without mention of misadventure at the time of the procedure; Y83.8 Other surgical procedures as the cause of abnormal reaction of the patient, or of later complication, without mention of misadventure at the time of the procedure | CPT/HCPCS: 97597 ==

== ENCOUNTER → 2020-12-25 | Outpatient (CLI) | payer MEDICAID | END | disposition home or self-care (01) | LOC: WOUND 09:07 | PROVIDERS: ATTEND Internal Medicine | DX: T87.33 Neuroma of amputation stump, right lower extremity (principal); T81.32XD Disruption of internal operation (surgical) wound, not elsewhere classified, subsequent encounter; T79.7XXD Traumatic subcutaneous emphysema, subsequent encounter; I70.235 Atherosclerosis of native arteries of right leg with ulceration of other part of foot; E11.621 Type 2 diabetes mellitus with foot ulcer; L97.515 Non-pressure chronic ulcer of other part of right foot with muscle involvement without evidence of necrosis; L03.115 Cellulitis of right lower limb; E11.69 Type 2 diabetes mellitus with other specified complication; M86.171 Other acute osteomyelitis, right ankle and foot; E11.42 Type 2 diabetes mellitus with diabetic polyneuropathy; E11.52 Type 2 diabetes mellitus with diabetic peripheral angiopathy with gangrene; I96 Gangrene, not elsewhere classified; E78.5 Hyperlipidemia, unspecified; E11.22 Type 2 diabetes mellitus with diabetic chronic kidney disease; I12.9 Hypertensive chronic kidney disease with stage 1 through stage 4 chronic kidney disease, or unspecified chronic kidney disease; N18.2 Chronic kidney disease, stage 2 (mild); N17.0 Acute kidney failure with tubular necrosis; F10.21 Alcohol dependence, in remission; F12.90 Cannabis use, unspecified, uncomplicated; G47.33 Obstructive sleep apnea (adult) (pediatric); E66.01 Morbid (severe) obesity due to excess calories; Z68.37 Body mass index [BMI] 37.0-37.9, adult; Z88.0 Allergy status to penicillin; Z79.4 Long term (current) use of insulin; Z79.82 Long term (current) use of aspirin; Z79.891 Long term (current) use of opiate analgesic; Z79.01 Long term (current) use of anticoagulants; X58.XXXD Exposure to other specified factors, subsequent encounter; Y83.5 Amputation of limb(s) as the cause of abnormal reaction of the patient, or of later complication, without mention of misadventure at the time of the procedure; Y83.8 Other surgical procedures as the cause of abnormal reaction of the patient, or of later complication, without mention of misadventure at the time of the procedure | CPT/HCPCS: 97597 ==

== ENCOUNTER → 2021-01-01 | Outpatient (CLI) | payer MEDICAID | END | disposition home or self-care (01) | LOC: WOUND 09:12 | PROVIDERS: ATTEND Internal Medicine | DX: T87.33 Neuroma of amputation stump, right lower extremity (principal); T81.32XD Disruption of internal operation (surgical) wound, not elsewhere classified, subsequent encounter; T79.7XXD Traumatic subcutaneous emphysema, subsequent encounter; I70.235 Atherosclerosis of native arteries of right leg with ulceration of other part of foot; E11.621 Type 2 diabetes mellitus with foot ulcer; L97.515 Non-pressure chronic ulcer of other part of right foot with muscle involvement without evidence of necrosis; L03.115 Cellulitis of right lower limb; E11.69 Type 2 diabetes mellitus with other specified complication; M86.171 Other acute osteomyelitis, right ankle and foot; E11.42 Type 2 diabetes mellitus with diabetic polyneuropathy; E11.52 Type 2 diabetes mellitus with diabetic peripheral angiopathy with gangrene; I96 Gangrene, not elsewhere classified; E78.5 Hyperlipidemia, unspecified; E11.22 Type 2 diabetes mellitus with diabetic chronic kidney disease; I12.9 Hypertensive chronic kidney disease with stage 1 through stage 4 chronic kidney disease, or unspecified chronic kidney disease; N18.2 Chronic kidney disease, stage 2 (mild); N17.0 Acute kidney failure with tubular necrosis; F10.21 Alcohol dependence, in remission; F12.90 Cannabis use, unspecified, uncomplicated; G47.33 Obstructive sleep apnea (adult) (pediatric); E66.01 Morbid (severe) obesity due to excess calories; Z68.37 Body mass index [BMI] 37.0-37.9, adult; Z88.0 Allergy status to penicillin; Z79.4 Long term (current) use of insulin; Z79.82 Long term (current) use of aspirin; Z79.891 Long term (current) use of opiate analgesic; Z79.01 Long term (current) use of anticoagulants; Z20.822 Contact with and (suspected) exposure to COVID-19; X58.XXXD Exposure to other specified factors, subsequent encounter; Y83.5 Amputation of limb(s) as the cause of abnormal reaction of the patient, or of later complication, without mention of misadventure at the time of the procedure; Y83.8 Other surgical procedures as the cause of abnormal reaction of the patient, or of later complication, without mention of misadventure at the time of the procedure | CPT/HCPCS: 97597 ==

== ENCOUNTER → 2021-01-08 | Outpatient (CLI) | payer MEDICAID | END | disposition home or self-care (01) | LOC: WOUND 09:07 | PROVIDERS: ATTEND Internal Medicine | DX: T87.33 Neuroma of amputation stump, right lower extremity (principal); T81.32XD Disruption of internal operation (surgical) wound, not elsewhere classified, subsequent encounter; T79.7XXD Traumatic subcutaneous emphysema, subsequent encounter; I70.235 Atherosclerosis of native arteries of right leg with ulceration of other part of foot; E11.621 Type 2 diabetes mellitus with foot ulcer; L97.515 Non-pressure chronic ulcer of other part of right foot with muscle involvement without evidence of necrosis; L03.115 Cellulitis of right lower limb; E11.69 Type 2 diabetes mellitus with other specified complication; M86.171 Other acute osteomyelitis, right ankle and foot; E11.42 Type 2 diabetes mellitus with diabetic polyneuropathy; E11.52 Type 2 diabetes mellitus with diabetic peripheral angiopathy with gangrene; I96 Gangrene, not elsewhere classified; E78.5 Hyperlipidemia, unspecified; E11.22 Type 2 diabetes mellitus with diabetic chronic kidney disease; I12.9 Hypertensive chronic kidney disease with stage 1 through stage 4 chronic kidney disease, or unspecified chronic kidney disease; N18.2 Chronic kidney disease, stage 2 (mild); N17.0 Acute kidney failure with tubular necrosis; F10.21 Alcohol dependence, in remission; F12.90 Cannabis use, unspecified, uncomplicated; G47.33 Obstructive sleep apnea (adult) (pediatric); E66.01 Morbid (severe) obesity due to excess calories; Z68.37 Body mass index [BMI] 37.0-37.9, adult; Z88.0 Allergy status to penicillin; Z79.4 Long term (current) use of insulin; Z79.82 Long term (current) use of aspirin; Z79.891 Long term (current) use of opiate analgesic; Z79.01 Long term (current) use of anticoagulants; X58.XXXD Exposure to other specified factors, subsequent encounter; Y83.5 Amputation of limb(s) as the cause of abnormal reaction of the patient, or of later complication, without mention of misadventure at the time of the procedure; Y83.8 Other surgical procedures as the cause of abnormal reaction of the patient, or of later complication, without mention of misadventure at the time of the procedure | CPT/HCPCS: 97597 ==

== ENCOUNTER → 2021-01-17 | Outpatient (CLI) | payer MEDICAID | END | disposition home or self-care (01) | LOC: WOUND 09:07 | PROVIDERS: ATTEND Internal Medicine | DX: E11.621 Type 2 diabetes mellitus with foot ulcer (principal); I70.235 Atherosclerosis of native arteries of right leg with ulceration of other part of foot; L97.515 Non-pressure chronic ulcer of other part of right foot with muscle involvement without evidence of necrosis; T79.7XXD Traumatic subcutaneous emphysema, subsequent encounter; L03.115 Cellulitis of right lower limb; E11.69 Type 2 diabetes mellitus with other specified complication; M86.171 Other acute osteomyelitis, right ankle and foot; E11.42 Type 2 diabetes mellitus with diabetic polyneuropathy; E11.52 Type 2 diabetes mellitus with diabetic peripheral angiopathy with gangrene; I96 Gangrene, not elsewhere classified; E78.5 Hyperlipidemia, unspecified; E11.22 Type 2 diabetes mellitus with diabetic chronic kidney disease; I12.9 Hypertensive chronic kidney disease with stage 1 through stage 4 chronic kidney disease, or unspecified chronic kidney disease; N18.2 Chronic kidney disease, stage 2 (mild); N17.0 Acute kidney failure with tubular necrosis; F10.21 Alcohol dependence, in remission; F12.90 Cannabis use, unspecified, uncomplicated; G47.33 Obstructive sleep apnea (adult) (pediatric); E66.01 Morbid (severe) obesity due to excess calories; Z68.37 Body mass index [BMI] 37.0-37.9, adult; Z88.0 Allergy status to penicillin; Z79.4 Long term (current) use of insulin; Z79.82 Long term (current) use of aspirin; Z79.891 Long term (current) use of opiate analgesic; Z79.01 Long term (current) use of anticoagulants; Z79.899 Other long term (current) drug therapy; Z20.822 Contact with and (suspected) exposure to COVID-19; X58.XXXD Exposure to other specified factors, subsequent encounter | CPT/HCPCS: 99212 ==

== ENCOUNTER → 2021-01-19 | Outpatient (CLI) | payer MEDICAID | END | disposition home or self-care (01) | LOC: WOUND 09:06 | PROVIDERS: ATTEND Internal Medicine | DX: T87.43 Infection of amputation stump, right lower extremity (principal); E11.621 Type 2 diabetes mellitus with foot ulcer; I70.235 Atherosclerosis of native arteries of right leg with ulceration of other part of foot; L97.515 Non-pressure chronic ulcer of other part of right foot with muscle involvement without evidence of necrosis; T79.7XXD Traumatic subcutaneous emphysema, subsequent encounter; L03.115 Cellulitis of right lower limb; E11.69 Type 2 diabetes mellitus with other specified complication; M86.171 Other acute osteomyelitis, right ankle and foot; E11.42 Type 2 diabetes mellitus with diabetic polyneuropathy; E11.52 Type 2 diabetes mellitus with diabetic peripheral angiopathy with gangrene; I96 Gangrene, not elsewhere classified; E78.5 Hyperlipidemia, unspecified; E11.22 Type 2 diabetes mellitus with diabetic chronic kidney disease; I12.9 Hypertensive chronic kidney disease with stage 1 through stage 4 chronic kidney disease, or unspecified chronic kidney disease; N18.2 Chronic kidney disease, stage 2 (mild); N17.0 Acute kidney failure with tubular necrosis; F10.21 Alcohol dependence, in remission; F12.90 Cannabis use, unspecified, uncomplicated; G47.33 Obstructive sleep apnea (adult) (pediatric); E66.01 Morbid (severe) obesity due to excess calories; Z68.37 Body mass index [BMI] 37.0-37.9, adult; Z88.0 Allergy status to penicillin; Z79.4 Long term (current) use of insulin; Z79.82 Long term (current) use of aspirin; Z79.891 Long term (current) use of opiate analgesic; Z79.01 Long term (current) use of anticoagulants; Z79.899 Other long term (current) drug therapy; Z20.822 Contact with and (suspected) exposure to COVID-19; X58.XXXD Exposure to other specified factors, subsequent encounter; Y83.5 Amputation of limb(s) as the cause of abnormal reaction of the patient, or of later complication, without mention of misadventure at the time of the procedure | CPT/HCPCS: 15275; Q4101 ==

== ENCOUNTER 2021-01-26 09:05 | Outpatient (CLI) | payer MEDICAID | END 2021-01-26 23:59 | disposition home or self-care (01) | LOC: WOUND 09:05 | PROVIDERS: ATTEND Internal Medicine | DX: T87.81 Dehiscence of amputation stump (principal); E11.621 Type 2 diabetes mellitus with foot ulcer; I70.235 Atherosclerosis of native arteries of right leg with ulceration of other part of foot; L97.515 Non-pressure chronic ulcer of other part of right foot with muscle involvement without evidence of necrosis; E11.69 Type 2 diabetes mellitus with other specified complication; M86.171 Other acute osteomyelitis, right ankle and foot; E11.52 Type 2 diabetes mellitus with diabetic peripheral angiopathy with gangrene; I96 Gangrene, not elsewhere classified; E11.42 Type 2 diabetes mellitus with diabetic polyneuropathy; L03.115 Cellulitis of right lower limb; E11.22 Type 2 diabetes mellitus with diabetic chronic kidney disease; N18.2 Chronic kidney disease, stage 2 (mild); I12.9 Hypertensive chronic kidney disease with stage 1 through stage 4 chronic kidney disease, or unspecified chronic kidney disease; E78.5 Hyperlipidemia, unspecified; T79.7XXD Traumatic subcutaneous emphysema, subsequent encounter; I25.10 Atherosclerotic heart disease of native coronary artery without angina pectoris; G47.33 Obstructive sleep apnea (adult) (pediatric); E66.01 Morbid (severe) obesity due to excess calories; Z68.37 Body mass index [BMI] 37.0-37.9, adult; Z79.4 Long term (current) use of insulin; Z79.82 Long term (current) use of aspirin; Z79.899 Other long term (current) drug therapy; X58.XXXD Exposure to other specified factors, subsequent encounter; Y83.5 Amputation of limb(s) as the cause of abnormal reaction of the patient, or of later complication, without mention of misadventure at the time of the procedure | CPT/HCPCS: 15275; 83036; Q4101 ==

== ENCOUNTER 2021-02-02 09:02 | Outpatient (CLI) | payer MEDICAID | END 2021-02-02 23:59 | disposition home or self-care (01) | LOC: WOUND 09:02 | PROVIDERS: ATTEND Internal Medicine | DX: T87.43 Infection of amputation stump, right lower extremity (principal); T87.81 Dehiscence of amputation stump; E11.621 Type 2 diabetes mellitus with foot ulcer; I70.235 Atherosclerosis of native arteries of right leg with ulceration of other part of foot; L97.515 Non-pressure chronic ulcer of other part of right foot with muscle involvement without evidence of necrosis; L03.115 Cellulitis of right lower limb; L84 Corns and callosities; E11.22 Type 2 diabetes mellitus with diabetic chronic kidney disease; I12.9 Hypertensive chronic kidney disease with stage 1 through stage 4 chronic kidney disease, or unspecified chronic kidney disease; N18.2 Chronic kidney disease, stage 2 (mild); E11.52 Type 2 diabetes mellitus with diabetic peripheral angiopathy with gangrene; I96 Gangrene, not elsewhere classified; E78.5 Hyperlipidemia, unspecified; E11.69 Type 2 diabetes mellitus with other specified complication; M86.171 Other acute osteomyelitis, right ankle and foot; T79.7XXD Traumatic subcutaneous emphysema, subsequent encounter; I25.10 Atherosclerotic heart disease of native coronary artery without angina pectoris; G47.33 Obstructive sleep apnea (adult) (pediatric); E66.01 Morbid (severe) obesity due to excess calories; F10.21 Alcohol dependence, in remission; Z68.37 Body mass index [BMI] 37.0-37.9, adult; Z79.4 Long term (current) use of insulin; Z79.82 Long term (current) use of aspirin; Z79.899 Other long term (current) drug therapy; X58.XXXD Exposure to other specified factors, subsequent encounter; Y83.5 Amputation of limb(s) as the cause of abnormal reaction of the patient, or of later complication, without mention of misadventure at the time of the procedure | CPT/HCPCS: 15275; Q4101; 97597 ==

== ENCOUNTER 2021-02-09 09:03 | Outpatient (CLI) | payer MEDICAID | END 2021-02-09 23:59 | disposition home or self-care (01) | LOC: WOUND 09:03 | PROVIDERS: ATTEND Internal Medicine | DX: T87.81 Dehiscence of amputation stump (principal); E11.621 Type 2 diabetes mellitus with foot ulcer; I70.235 Atherosclerosis of native arteries of right leg with ulceration of other part of foot; L97.515 Non-pressure chronic ulcer of other part of right foot with muscle involvement without evidence of necrosis; T79.7XXD Traumatic subcutaneous emphysema, subsequent encounter; E11.69 Type 2 diabetes mellitus with other specified complication; M86.171 Other acute osteomyelitis, right ankle and foot; E11.52 Type 2 diabetes mellitus with diabetic peripheral angiopathy with gangrene; I96 Gangrene, not elsewhere classified; E11.42 Type 2 diabetes mellitus with diabetic polyneuropathy; L03.115 Cellulitis of right lower limb; E11.22 Type 2 diabetes mellitus with diabetic chronic kidney disease; N18.2 Chronic kidney disease, stage 2 (mild); I12.9 Hypertensive chronic kidney disease with stage 1 through stage 4 chronic kidney disease, or unspecified chronic kidney disease; E78.5 Hyperlipidemia, unspecified; I25.10 Atherosclerotic heart disease of native coronary artery without angina pectoris; G47.33 Obstructive sleep apnea (adult) (pediatric); L84 Corns and callosities; F12.90 Cannabis use, unspecified, uncomplicated; F10.21 Alcohol dependence, in remission; E66.01 Morbid (severe) obesity due to excess calories; Z68.37 Body mass index [BMI] 37.0-37.9, adult; Z79.4 Long term (current) use of insulin; Z79.82 Long term (current) use of aspirin; Z79.899 Other long term (current) drug therapy; Z88.0 Allergy status to penicillin; Z79.01 Long term (current) use of anticoagulants; Z79.891 Long term (current) use of opiate analgesic; Z20.822 Contact with and (suspected) exposure to COVID-19; X58.XXXD Exposure to other specified factors, subsequent encounter; Y83.5 Amputation of limb(s) as the cause of abnormal reaction of the patient, or of later complication, without mention of misadventure at the time of the procedure | CPT/HCPCS: 15275; Q4101 ==

== ENCOUNTER → 2021-02-16 | Outpatient (CLI) | payer MEDICAID | END | disposition home or self-care (01) | LOC: WOUND 09:15 | PROVIDERS: ATTEND Internal Medicine Cardiovascular Disease | DX: T87.81 Dehiscence of amputation stump (principal); E11.621 Type 2 diabetes mellitus with foot ulcer; I70.235 Atherosclerosis of native arteries of right leg with ulceration of other part of foot; L97.515 Non-pressure chronic ulcer of other part of right foot with muscle involvement without evidence of necrosis; L03.115 Cellulitis of right lower limb; T79.7XXD Traumatic subcutaneous emphysema, subsequent encounter; E11.69 Type 2 diabetes mellitus with other specified complication; M86.171 Other acute osteomyelitis, right ankle and foot; E11.52 Type 2 diabetes mellitus with diabetic peripheral angiopathy with gangrene; I96 Gangrene, not elsewhere classified; E11.42 Type 2 diabetes mellitus with diabetic polyneuropathy; E11.22 Type 2 diabetes mellitus with diabetic chronic kidney disease; I12.9 Hypertensive chronic kidney disease with stage 1 through stage 4 chronic kidney disease, or unspecified chronic kidney disease; N18.2 Chronic kidney disease, stage 2 (mild); E78.5 Hyperlipidemia, unspecified; I25.10 Atherosclerotic heart disease of native coronary artery without angina pectoris; G47.33 Obstructive sleep apnea (adult) (pediatric); L84 Corns and callosities; F12.90 Cannabis use, unspecified, uncomplicated; F10.21 Alcohol dependence, in remission; E66.01 Morbid (severe) obesity due to excess calories; Z68.37 Body mass index [BMI] 37.0-37.9, adult; Z79.4 Long term (current) use of insulin; Z79.82 Long term (current) use of aspirin; Z79.891 Long term (current) use of opiate analgesic; Z79.01 Long term (current) use of anticoagulants; Z79.899 Other long term (current) drug therapy; Z88.0 Allergy status to penicillin; Z20.822 Contact with and (suspected) exposure to COVID-19; X58.XXXD Exposure to other specified factors, subsequent encounter; Y83.5 Amputation of limb(s) as the cause of abnormal reaction of the patient, or of later complication, without mention of misadventure at the time of the procedure | CPT/HCPCS: 99212 ==

== ENCOUNTER 2021-02-23 09:09 | Outpatient (CLI) | payer MEDICAID | END 2021-02-23 23:59 | disposition home or self-care (01) | LOC: WOUND 09:09 | PROVIDERS: ATTEND Internal Medicine | DX: T81.32XD Disruption of internal operation (surgical) wound, not elsewhere classified, subsequent encounter (principal); E11.621 Type 2 diabetes mellitus with foot ulcer; L97.515 Non-pressure chronic ulcer of other part of right foot with muscle involvement without evidence of necrosis; L03.115 Cellulitis of right lower limb; E11.22 Type 2 diabetes mellitus with diabetic chronic kidney disease; I12.9 Hypertensive chronic kidney disease with stage 1 through stage 4 chronic kidney disease, or unspecified chronic kidney disease; N18.2 Chronic kidney disease, stage 2 (mild); E11.69 Type 2 diabetes mellitus with other specified complication; M86.171 Other acute osteomyelitis, right ankle and foot; E11.42 Type 2 diabetes mellitus with diabetic polyneuropathy; E11.52 Type 2 diabetes mellitus with diabetic peripheral angiopathy with gangrene; I96 Gangrene, not elsewhere classified; I25.10 Atherosclerotic heart disease of native coronary artery without angina pectoris; E78.5 Hyperlipidemia, unspecified; E66.01 Morbid (severe) obesity due to excess calories; G47.33 Obstructive sleep apnea (adult) (pediatric); F12.90 Cannabis use, unspecified, uncomplicated; F10.20 Alcohol dependence, uncomplicated; Z88.0 Allergy status to penicillin; Z79.899 Other long term (current) drug therapy; Z79.01 Long term (current) use of anticoagulants; Z79.4 Long term (current) use of insulin; Z79.82 Long term (current) use of aspirin; Z79.891 Long term (current) use of opiate analgesic; Z68.37 Body mass index [BMI] 37.0-37.9, adult; Z89.429 Acquired absence of other toe(s), unspecified side; Y83.8 Other surgical procedures as the cause of abnormal reaction of the patient, or of later complication, without mention of misadventure at the time of the procedure | CPT/HCPCS: 97597 ==

== ENCOUNTER 2021-03-07 07:51 | Outpatient (CLI) | payer MEDICAID | END 2021-03-07 23:59 | disposition home or self-care (01) | LOC: WOUND 07:51 | PROVIDERS: ATTEND Internal Medicine | DX: T81.32XD Disruption of internal operation (surgical) wound, not elsewhere classified, subsequent encounter (principal); E11.621 Type 2 diabetes mellitus with foot ulcer; I70.235 Atherosclerosis of native arteries of right leg with ulceration of other part of foot; L97.515 Non-pressure chronic ulcer of other part of right foot with muscle involvement without evidence of necrosis; L03.115 Cellulitis of right lower limb; E11.22 Type 2 diabetes mellitus with diabetic chronic kidney disease; I12.9 Hypertensive chronic kidney disease with stage 1 through stage 4 chronic kidney disease, or unspecified chronic kidney disease; N18.2 Chronic kidney disease, stage 2 (mild); I25.10 Atherosclerotic heart disease of native coronary artery without angina pectoris; E78.5 Hyperlipidemia, unspecified; E11.69 Type 2 diabetes mellitus with other specified complication; M86.171 Other acute osteomyelitis, right ankle and foot; E11.42 Type 2 diabetes mellitus with diabetic polyneuropathy; E11.52 Type 2 diabetes mellitus with diabetic peripheral angiopathy with gangrene; I96 Gangrene, not elsewhere classified; G47.33 Obstructive sleep apnea (adult) (pediatric); E66.01 Morbid (severe) obesity due to excess calories; F10.20 Alcohol dependence, uncomplicated; Z68.33 Body mass index [BMI] 33.0-33.9, adult; Z79.4 Long term (current) use of insulin; Z79.82 Long term (current) use of aspirin; Z79.899 Other long term (current) drug therapy; Z89.429 Acquired absence of other toe(s), unspecified side; Y83.8 Other surgical procedures as the cause of abnormal reaction of the patient, or of later complication, without mention of misadventure at the time of the procedure | CPT/HCPCS: 97597 ==

== ENCOUNTER 2021-03-21 09:26 | Outpatient (CLI) | payer MEDICAID | END 2021-03-21 23:59 | disposition home or self-care (01) | LOC: WOUND 09:26 | PROVIDERS: ATTEND Internal Medicine | DX: T81.32XD Disruption of internal operation (surgical) wound, not elsewhere classified, subsequent encounter (principal); E11.621 Type 2 diabetes mellitus with foot ulcer; L97.515 Non-pressure chronic ulcer of other part of right foot with muscle involvement without evidence of necrosis; L03.115 Cellulitis of right lower limb; E11.22 Type 2 diabetes mellitus with diabetic chronic kidney disease; I12.9 Hypertensive chronic kidney disease with stage 1 through stage 4 chronic kidney disease, or unspecified chronic kidney disease; N18.2 Chronic kidney disease, stage 2 (mild); E11.69 Type 2 diabetes mellitus with other specified complication; M86.171 Other acute osteomyelitis, right ankle and foot; E11.42 Type 2 diabetes mellitus with diabetic polyneuropathy; E11.52 Type 2 diabetes mellitus with diabetic peripheral angiopathy with gangrene; I96 Gangrene, not elsewhere classified; I25.10 Atherosclerotic heart disease of native coronary artery without angina pectoris; E78.5 Hyperlipidemia, unspecified; E66.01 Morbid (severe) obesity due to excess calories; G47.33 Obstructive sleep apnea (adult) (pediatric); F12.90 Cannabis use, unspecified, uncomplicated; F10.20 Alcohol dependence, uncomplicated; Z68.33 Body mass index [BMI] 33.0-33.9, adult; Z88.0 Allergy status to penicillin; Z79.899 Other long term (current) drug therapy; Z79.01 Long term (current) use of anticoagulants; Z79.4 Long term (current) use of insulin; Z79.82 Long term (current) use of aspirin; Z79.891 Long term (current) use of opiate analgesic; Y83.8 Other surgical procedures as the cause of abnormal reaction of the patient, or of later complication, without mention of misadventure at the time of the procedure | CPT/HCPCS: 99212 ==